=== PATIENT | male | born 1950 | race Caucasian/White ===

== ENCOUNTER 2016-07-20 20:55 | Observation (INO) | payer OTHER ==
[2016-07-20 22:43] LABS: Aty Lym Flag Marked; CH 33.6; CHCM 33.5; HCT 44.6 % (39.0-53.0); HGB 14.8 gm/dL (13.0-17.5); MCH 33.4 pg (25.0-35.0); MCHC 33.2 g/dL (31.0-37.0); MCV 100.8 fL (80.0-100.0); MPO Flag Slight; Mean Platelet Volume 8.2; RBC 4.42 m/uL (4.30-5.90); RDW 13.4 % (11.5-15.5); WBC 12.1 k/uL (3.8-10.6); WBC (Perox) 10.53
[2016-07-20 22:47] LABS: Add Differential Manual Differential
[2016-07-20 22:54] LABS: ALT 25 U/L (21-72); AST 25 U/L (17-59); Alkaline Phosphatase 64 U/L (38-126); Amylase 66 U/L (30-110); Anion Gap 8 mmol/L; Blood Urea Nitrogen 23 mg/dL (9-20); Calcium 9.5 mg/dL (8.4-10.2); Carbon Dioxide 24 mmol/L (22-30); Chloride 110 mmol/L (98-107); Glucose 93 mg/dL (74-99); Magnesium 2.3 mg/dL (1.6-2.3); Manual Review Performed; Non-African American GFR(MDRD) 56 (>60 ml/min/1.73 sqM); Nucleated Red Blood Cells 0 /100 WBC (0-0); Potassium 4.4 mmol/L (3.5-5.1); RBC Morphology Normal; Sodium 142 mmol/L (137-145); Total Bilirubin 0.5 mg/dL (0.2-1.3); Total Cells Counted 100; Total Protein 7.1 g/dL (6.3-8.2)
[2016-07-20 22:55] LABS: Partial Thromboplastin Time 23.7 sec (22.0-30.0); Prothrombin Time 10.1 sec (9.0-12.0)
[2016-07-20 23:05] LABS: Creatine Kinase 87 U/L (55-170)
[2016-07-20 23:17] LABS: Creatine Kinase MB 1.2 ng/mL (0.0-2.4); Troponin I <0.012 ng/mL (0.000-0.034)
--- NOTE | 2016-07-20 23:23 | XR ---
EXAM: XR Chest, 2 Views. CLINICAL HISTORY: Reason: Chest Pain TECHNIQUE: Frontal and lateral views of the chest. COMPARISON: No relevant prior studies available. FINDINGS: Lungs: Left base atelectasis. Cannot fully exclude infectious infiltrate. Pleural spaces: Unremarkable. No pneumothorax. Heart: Unremarkable. No cardiomegaly. Mediastinum: Unremarkable. Bones: Impression fracture deformities of lower thoracic levels, presumably chronic IMPRESSION: Left base atelectasis. Cannot fully exclude superimposed infection. Presumably chronic lower thoracic compression fracture deformities.
--- NOTE | 2016-07-21 00:53 | ED ---
Chest Pain HPI - General Chief Complaint: Chest Pain Stated Complaint: chest tightness, nausea Time Seen by Provider: 07/20/16 22:05 Source: patient Mode of arrival: wheelchair Limitations: no limitations - History of Present Illness Initial Comments: This patient is a 65-year-old man who presents to be evaluated for an episode of chest pain. The patient states that he had been working on cutting his grass with a push mower. He then went in to have his meal at around 6:30. Following that he had an episode of nausea and vomiting. He then noted that he was having some left chest tightness and he was feeling short of breath. The patient states that he sat and rested and the symptoms did seem to improve over the course of between 20 and 30 minutes. Patient discussed all this with his who wanted him to be seen here. The patient states that all of the initial symptoms have resolved and now he is only feeling tired. MD Complaint: chest pain Onset/Timin -: hour(s) Onset: after eating Pain Location: left chest Pain Radiation: none Severity: moderate Quality: tightness Consistency: now resolved Improves With: rest Worsens With: nothing Anginal Symptoms: nausea, vomiting, dyspnea Treatments Prior to Arrival: none - Related Data Home Medications Medication Instructions Recorded Confirmed Aspirin 325 mg PO DAILY 07/20/16 07/20/16 Enalapril Maleate [Vasotec] 5 mg PO DAILY 07/20/16 07/20/16 Meloxicam [Mobic] 7.5 mg PO DAILY PRN 07/20/16 07/20/16 Metoprolol Succinate (ER) [Toprol 50 mg PO DAILY 07/20/16 07/20/16 XL] Simvastatin [Zocor] 40 mg PO HS 07/20/16 07/20/16 Allergies Allergy/AdvReac Type Severity Reaction Status Date / Time No Known Allergies Allergy Verified 07/20/16 22:45 Review of Systems ROS Statement: Those systems with pertinent positive or pertinent negative responses have been documented in the HPI. ROS Other: All systems not noted in ROS Statement are negative. Constitutional: Denies: fever, chills, weakness Respiratory: Reports: as per HPI, dyspnea. Denies: cough, wheezes Cardiovascular: Reports: chest pain. Denies: palpitations, orthopnea, edema, syncope Gastrointestinal: Reports: as per HPI, nausea, vomiting. Denies: abdominal pain , melena, hematochezia Genitourinary: Denies: dysuria, hematuria Musculoskeletal: Denies: back pain Skin: Denies: rash Neurological: Denies: headache, weakness, numbness EKG Findings - EKG Results: EKG: interpreted by SAVITA SCOTT, sinus rhythm (Rate approximate 71 bpm), normal axis, normal QRS, normal ST/T - [place], Pacemaker, Normal: Normal tracing: normal tracing Past Medical History Past Medical History: Hyperlipidemia, Hypertension Additional Past Medical History / Comment(s): pt unsure of exact medical dx but states "heart valve problems" History of Any Multi-Drug Resistant Organisms: None Reported Past Surgical History: Tonsillectomy Past Psychological History: No Psychological Hx Reported Smoking Status: Current every day smoker Past Alcohol Use History: None Reported Past Drug Use History: None Reported General Exam Limitations: no limitations General appearance: alert, in no apparent distress Head exam: Present: atraumatic, normocephalic Eye exam: Present: normal appearance. Absent: scleral icterus, conjunctival injection Neck exam: Present: normal inspection Respiratory exam: Present: normal lung sounds bilaterally. Absent: respiratory distress, wheezes, rales, rhonchi, stridor Cardiovascular Exam: Present: regular rate, normal rhythm, normal heart sounds. Absent: systolic murmur, diastolic murmur, rubs, gallop GI/Abdominal exam: Present: soft. Absent: distended, tenderness, guarding, rebound, mass Extremities exam: Present: normal inspection, normal capillary refill. Absent: pedal edema, calf tenderness Back exam: Present: normal inspection. Absent: CVA tenderness (R), CVA tenderness (L) Neurological exam: Present: alert Skin exam: Present: warm, dry, intact, normal color. Absent: rash Course Vital Signs 07/20/16 07/20/16 07/20/16 21:01 22:09 23:01 Temperature 97.2 F L Pulse Rate 82 80 75 Respiratory 16 18 18 Rate Blood Pressure 117/59 111/67 118/64 O2 Sat by Pulse 96 97 97 Oximetry 07/21/16 07/21/16 07/21/16 00:00 01:00 02:00 Temperature Pulse Rate 70 68 71 Respiratory 18 18 18 Rate Blood Pressure 114/63 117/60 137/69 O2 Sat by Pulse 97 97 97 Oximetry Disposition Clinical Impression: Chest pain Disposition: ADMITTED IP TO THIS HOSP Condition: Fair Referrals: Malinda Gipson MD [Primary Care Provider] - 1-2 days
[2016-07-21] MEDS ORDERED: NITROGLYCERIN SL TABS 0.4 MG TAB SUBLINGUAL PRN (03:09)
[2016-07-21 05:04] LABS: Creatine Kinase 71 U/L (55-170)
[2016-07-21 05:16] LABS: Creatine Kinase MB 0.9 ng/mL (0.0-2.4); Troponin I <0.012 ng/mL (0.000-0.034)
[2016-07-21 09:38] LABS: Creatine Kinase 63 U/L (55-170)
[2016-07-21 09:52] LABS: Creatine Kinase MB 0.8 ng/mL (0.0-2.4); Troponin I <0.012 ng/mL (0.000-0.034)
[2016-07-21] MEDS: METOPROLOL SUCCINATE (ER) 50 MG TAB.ER.24H PO SCH (12:45)
[2016-07-21] MEDS: LISINOPRIL 10 MG TAB PO SCH (12:45)
[2016-07-21] MEDS: ASPIRIN 325 MG TAB PO SCH (12:45)
[2016-07-21] MEDS ORDERED: ALBUTEROL NEBULIZED 2.5 MG/3 ML INHALATION PRN (13:37)
[2016-07-21] MEDS: PANTOPRAZOLE 40 MG TABLET PO SCH (18:02)
[2016-07-21] MEDS ORDERED: SYMBICORT 80-4.5 MCG INHALER INHALATION SCH (20:00)
[2016-07-21] MEDS: ATORVASTATIN 20 MG TAB PO SCH (21:46)
[2016-07-22] MEDS: SODIUM CHLORIDE 0.9% 1,000 ML IV SCH ×3 (00:37→20:26)
[2016-07-22 05:33] LABS: Cholesterol 163 mg/dL (<200); HDL Cholesterol 52 mg/dL (40-60); Triglycerides 68 mg/dL (<150)
--- NOTE | 2016-07-22 08:29 | HP ---
DATE OF ADMISSION: 07/21/2016 The patient is a 65-year-old complaints of testing in the epigastric area started after eating a meal, lasted for about 20 minutes, pressure-like sensation. Patient also complained about some shortness of breath may be related to his COPD per se, questionable diaphoresis. Patient's chest pain is nonpleuritic in nature. Did also complain of some lightheadedness. Patient does have risk factors including hypertension, and hyperlipidemia, although no significant family history of premature coronary disease and patient does smoke. Otherwise, diagnosed with history of COPD . ( ). REVIEW OF SYSTEMS: CONSTITUTIONAL: No fever, no malaise, no fatigue. HEENT: No recent visual problems or hearing problems. Denied any sore throat. CARDIOVASCULAR: as described in HPI. Patient denied any palpitations. PULMONARY: as described in HPI. GASTROINTESTINAL: No diarrhea, no nausea, no vomiting, no abdominal pain. Normoactive bowel sounds. NEUROLOGICAL: No headaches, no weakness, no numbness. HEMATOLOGICAL: Denies any bleeding or petechiae. GENITOURINARY: Denies any burning micturition, frequency, or urgency. MUSCULOSKELETAL/RHEUMATOLOGICAL: Denies any joint pain, swelling, or any muscle pain. ENDOCRINE: Denies any polyuria or polydipsia. The rest of the 14 point review of systems is negative. Home medications include: 1. Aspirin. 2. Meloxicam. 3. Metoprolol. 4. Losartan. ALLERGIES: No known drug allergies. PAST MEDICAL HISTORY: Significant for hypertension, hyperlipidemia, patient does have a history of smoking, smokes about 1 pack per day. Denied any alcohol abuse. FAMILY HISTORY: Significant for lung cancer in family. No history of premature coronary artery disease. PHYSICAL EXAMINATION: VITAL SIGNS: Temperature 98.0, pulse of 73, respiratory rate 18, blood pressure is 116/61, saturating at 96% on room air. GENERAL: The patient is alert and oriented x3, not in any acute distress. Well developed, well nourished. HEENT: Pupils are round and equally reacting to light. EOMI. No scleral icterus. No conjunctival pallor. Normocephalic, atraumatic. No pharyngeal erythema. No thyromegaly. CARDIOVASCULAR: S1 and S2 present. No murmurs, rubs, or gallops. PULMONARY: Minimal expiratory wheezing was appreciated. The chest x-ray showed minimal bibasilar atelectasis. ABDOMEN: Soft, nontender, nondistended, normoactive bowel sounds. No palpable organomegaly. MUSCULOSKELETAL: No joint swelling or deformity. EXTREMITIES: No cyanosis, clubbing, or pedal edema. NEUROLOGICAL: Gross neurological examination did not reveal any focal deficits. SKIN: No rashes. LABORATORY DATA: CBC, CMP are abnormal for mildly elevated WBC count 12,100, BUN and creatinine are 23 and 1.3. I do not have his baseline creatinine. ASSESSMENT AND PLAN: 1. Chest pain. Rule out acute coronary syndrome. Will obtain two more sets of troponins. The patient was evaluated by cardiology. The patient's chest pain is mostly in the gastric area appears to be mostly gastritis and the patient has been started on Protonix to see if he has any improvement. 2. Shortness of breath, probably related to undiagnosed chronic obstructive pulmonary disease. I do not believe the patient ( ) at this point of time the patient will be started on ( ) nebulizations. 3. Nicotine abuse, counselling was provided. 4. Hypertension. 5. Hyperlipidemia. 6. Possible chronic kidney disease from Stage 2 to 3, possibly from hypertensive nephrosclerosis. The patient will be started on IV fluids and see if his kidney function improves, if it is related with secondary to prerenal azotemia. 7. Hyperlipidemia, ( ) will be continued.
[2016-07-22] MEDS ORDERED: ASPIRIN 325 MG TAB PO SCH (09:00)
--- NOTE | 2016-07-22 09:14 | P.CRDCN ---
History of Present Illness Consult date: 07/22/16 Reason for Consult (text): chest pain Chief complaint: nausea/vomiting, chest pressure and SOB History of present illness: This is a pleasant 65-year-old gentleman with a history of hypertension, hyperlipidemia, smoking and COPD. He denies a family history of heart disease. 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 Most recent echogardiogram form 2005 showed left atrial enlargement, thickened mitral valve without prolapse, LV enlargement with normal EF, and mild pulmonary hypertension. He also underwent a persantine cardiolyte for cardiac catheterization around that time, these results are not available with the patient believes is her normal. Yesterday he was in his usual state of health, was push mowing part of his lawn. He came in the house, ate dinner and developed sudden onset nausea and vomiting. He then sat on his couch and developed intermittent chest tightness and pressure with shortness of breath lasting about 20-30 minutes resolved on their own. The duration of the episode patient decided to come to the emergency department. EKG on admission shows normal sinus rhythm without acute ST-T wave changes. Chest X-ray showed left base atelectasis and could not fully exclude superimposed infection. Laboratory evaluation of troponins to be less than 0.0123 with a BUN/ creatinine of 23 and creatinine 1.3. Vital signs have been stable. On examination, patient is resting comfortably in bed. He denies any further complaints of nausea, vomiting, chest pressure or tightness or shortness of breath. Had no dizziness, lightheadedness, syncope, abdominal pain or edema. Past Medical History Past Medical History: Hyperlipidemia, Hypertension Additional Past Medical History / Comment(s): pt unsure of exact medical dx but states "heart valve problems," pts states he takes mobic for a frozen shoulder. pt states he had a heart cath done and had a leaky valve, pt believes heart cath was done about 2004. History of Any Multi-Drug Resistant Organisms: None Reported Past Surgical History: Tonsillectomy Past Psychological History: No Psychological Hx Reported Smoking Status: Current every day smoker Past Alcohol Use History: None Reported Past Drug Use History: None Reported - Past Family History Mother Family Medical History: Cancer Additional Family Medical History / Comment(s): lung cancer, reproductive organ cancer and spread to her breain. Father History Unknown: Yes Sister(s) Additional Family Medical History / Comment(s): 1 sister had non-hodgkin's lymphoma. 2 sister had pancreatic cancer Medications and Allergies Home Medications Medication Instructions Recorded Confirmed Type Aspirin 325 mg PO DAILY 07/20/16 07/20/16 History Enalapril Maleate [Vasotec] 5 mg PO DAILY 07/20/16 07/20/16 History Meloxicam [Mobic] 7.5 mg PO DAILY PRN 07/20/16 07/20/16 History Metoprolol Succinate (ER) [Toprol 50 mg PO DAILY 07/20/16 07/20/16 History XL] Simvastatin [Zocor] 40 mg PO HS 07/20/16 07/20/16 History Allergies Allergy/AdvReac Type Severity Reaction Status Date / Time No Known Allergies Allergy Verified 07/20/16 22:45 Physical Exam Vitals: Vital Signs Temp Pulse Pulse Resp BP BP Pulse Ox 07/22/16 07:42 98.1 F 58 L 16 103/54 96 07/22/16 04:00 97.6 F 51 L 16 100/56 95 07/22/16 03:48 18 07/21/16 23:53 18 07/21/16 23:48 54 L 18 114/65 96 07/21/16 20:00 97.8 F 66 18 112/66 97 07/21/16 16:00 97.8 F 60 16 98/59 96 07/21/16 12:07 97.8 F 57 L 16 116/57 96 07/21/16 12:00 97.9 F 76 18 125/58 97 07/21/16 11:47 57 L 18 116/57 97 07/21/16 10:35 62 18 116/61 98 Intake and Output 07/21/16 07/22/16 07/22/16 22:59 06:59 14:59 Intake Total 250 200 Balance 250 200 Intake: Oral 250 200 Other: Voiding Method Toilet Toilet # Voids 1 2 PHYSICAL EXAMINATION: HEENT: Head is atraumatic, normocephalic. Pupils equal, round. Neck is supple. There is no elevated jugular venous pressure. HEART EXAMINATION: Heart sounds regular, S1 and S2 normal. No murmur or gallop heard. CHEST EXAMINATION: Lungs are clear to auscultation and precussion. No chest wall tenderness is noted on palpation or with deep breathing. ABDOMEN: Soft, nontender. Bowel sounds are heard. No organomegaly noted. EXTREMITIES: 2+ peripheral pulses with no evidence of peripheral edema and no calf tenderness noted. NEUROLOGIC patient is awake, alert and oriented x3. . Results 07/20/16 22:19 07/20/16 22:19 Cardiac Enzymes 07/21/16 Range/Units 08:43 CK-MB (CK-2) 0.8 (0.0-2.4) ng/mL Troponin I <0.012 (0.000-0.034) ng/mL Lipids 07/21/16 Range/Units 08:43 Triglycerides 68 (<150) mg/dL Cholesterol 163 (<200) mg/dL HDL Cholesterol 52 (40-60) mg/dL Current Medications Generic Name Dose Route Start Last Admin Trade Name Freq PRN Reason Stop Dose Admin Albuterol Sulfate 2.5 mg 07/21/16 13:37 Ventolin Nebulized INHALATION RT-TID PRN Shortness Of Breath Or Wheezing Aspirin 325 mg 07/21/16 09:00 07/21/16 12:45 Aspirin PO 325 mg DAILY UMER Administration Atorvastatin Calcium 20 mg 07/21/16 21:00 07/21/16 21:46 Lipitor PO 20 mg HS UMER Administration Budesonide/Formoterol Fumarate 2 puff 07/22/16 08:00 Symbicort 160-4.5 Mcg Inhaler INHALATION RT-BID UMER Sodium Chloride 1,000 mls @ 100 mls/hr 07/21/16 23:45 07/22/16 00:37 Saline 0.9% IV 100 mls/hr .Q10H UMER Administration Lisinopril 10 mg 07/21/16 09:00 07/21/16 12:45 Zestril PO 10 mg DAILY UMER Administration Metoprolol Succinate 50 mg 07/21/16 09:00 07/21/16 12:45 Toprol Xl PO 50 mg DAILY UMER Administration Nitroglycerin 0.4 mg 07/21/16 03:09 Nitrostat SUBLINGUAL Q5M PRN Chest Pain Pantoprazole Sodium 40 mg 07/21/16 13:15 07/21/16 18:02 Protonix PO 40 mg [id number] UMER Administration Sodium Chloride 10 ml 07/21/16 09:00 07/21/16 21:46 Saline Flush IV 10 ml BID UMER Administration Intake and Output 07/21/16 07/22/16 07/22/16 22:59 06:59 14:59 Intake Total 250 200 Balance 250 200 Intake: Oral 250 200 Other: Voiding Method Toilet Toilet # Voids 1 2 07/20/16 22:19 07/20/16 22:19 EKG Interpretations (text) Normal sinus rhythm Assessment and Plan Plan: Assessment and Plan #1 hypertension, well-controlled #2 hyperlipidemia, LDL 97 and HDL 52, on simvastatin at home #3 nausea and vomiting #4 chest pressure and tightness with shortness of breath with negative cardiac enzymes From cardiology's perspective, we will obtain 2-D echo with Doppler to assess LV function. Increase the patient's activity. Further recommendations depending on patient's clinical status. FOREMAN OR SUPERVISOR AND OPERATOR note has been reviewed, I agree with a documented findings and plan of care. Patient was seen and examined.
[2016-07-22] MEDS: LISINOPRIL 10 MG TAB PO SCH (09:33)
[2016-07-22] MEDS: METOPROLOL SUCCINATE (ER) 50 MG TAB.ER.24H PO SCH (09:33)
[2016-07-22] MEDS: ASPIRIN 325 MG TAB PO SCH (09:34)
[2016-07-22] MEDS: PANTOPRAZOLE 40 MG TABLET PO SCH (09:34)
[2016-07-22] MEDS: SYMBICORT 160-4.5 MCG INHALER INHALATION SCH ×2 (09:58→21:07)
--- NOTE | 2016-07-22 10:44 | P.PN ---
Progress Note - Text 65-year-old male patient presenting with chest discomfort after mowing the lawn. Risk factors of hypertension dyslipidemia and smoking, normal cardiac enzymes normal ECG Suggest Lexiscan for light stress test on Sunday Aspirin and atorvastatin in the interim No beta blockers no Imdur Reassessment thereafter
--- NOTE | 2016-07-22 18:35 | ECHOF ---
Referral Reason:Chest Pain MEASUREMENTS -------- HEIGHT: 182.9 cm WEIGHT: 78.5 kg BP: 103/54 IVSd: 0.9 cm (0.6 - 1.1) LVIDd: 6.0 cm (3.9 - 5.3) LVPWd: 1.0 cm (0.6 - 1.1) IVSs: 1.2 cm LVIDs: 4.7 cm LVPWs: 1.6 cm LAESV Index (A-L): 39.68 ml/m Ao Diam: 3.6 cm (2.0 - 3.7) AV Cusp: 2.6 cm (1.5 - 2.6) LA Diam: 4.1 cm (2.7 - 3.8) MV EXCURSION: 19.089 mm (> 18.000) MV EF SLOPE: 70 mm/s (70 - 150) EPSS: 0.8 cm MV E [place]: 0.86 m/s MV DecT: 234 ms MV A [place]: 1.08 m/s MV E/A Ratio: 0.80 AR PHT: 671 ms RAP: 5.00 mmHg RVSP: 8.15 mmHg FINDINGS -------- Sinus rhythm. This was a technically good study. The left ventricle is mildly dilated. Left ventricular wall thickness is normal. There is mild global hypokinesis of LV . Overall left ventricular systolic function is mildly impaired with, an EF between 45 - 50 %. The right ventricle is normal in size and function. LA is moderately dilated 34-39 ml/m2 The right atrium is normal in size. Aortic valve is trileaflet and is mildly thickened. There is moderate aortic regurgitation. The mitral valve leaflets are mildly thickened. Mild mitral annular calcification present. Moderate mitral regurgitation is present. Mild tricuspid regurgitation present. The right ventricular systolic pressure, as measured by Doppler, is 8.15mmHg. Pulmonic valve appears structurally normal. The aortic root size is normal. The pericardium is normal. CONCLUSIONS -------- 1. Sinus rhythm. 2. The mitral valve leaflets are mildly thickened. 3. Mild mitral annular calcification present. 4. Moderate mitral regurgitation is present. 5. Mild tricuspid regurgitation present. 6. The right ventricular systolic pressure, as measured by Doppler, is 8.15mmHg. 7. Pulmonic valve appears structurally normal. 8. The aortic root size is normal. 9. The pericardium is normal. 10. This was a technically good study. 11. The left ventricle is mildly dilated. 12. Left ventricular wall thickness is normal. 13. The right ventricle is normal in size and function. 14. LA is moderately dilated 34-39 ml/m2 15. The right atrium is normal in size. 16. Aortic valve is trileaflet and is mildly thickened. 17. There is moderate aortic regurgitation. SECONDARY SPANISH TEACHER: Meredith Davila RDCS
[2016-07-22] MEDS: ATORVASTATIN 20 MG TAB PO SCH (20:35)
[2016-07-23] MEDS: SODIUM CHLORIDE 0.9% 1,000 ML IV SCH ×2 (06:54→17:20)
[2016-07-23] MEDS: ASPIRIN 81 MG CHEW PO SCH (08:22)
[2016-07-23] MEDS: PANTOPRAZOLE 40 MG TABLET PO SCH (08:22)
[2016-07-23] MEDS: LISINOPRIL 10 MG TAB PO SCH (08:22)
[2016-07-23] MEDS: SYMBICORT 160-4.5 MCG INHALER INHALATION SCH ×2 (09:10→19:24)
--- NOTE | 2016-07-23 09:14 | PN ---
INTERVAL HISTORY: Mr. Alba is a 65 -year-old male with a past medical history of hypertension, hyperlipidemia, smoking, admitted to the hospital with a chief complaint of chest pain. The patient states that he started to have the chest discomfort after having a meal last for about 20 minutes pressure-like sensation associated with some shortness of breath and questionable diaphoresis. The patient also had slight dizziness and lightheadedness. He is currently being monitored with serial troponins and EKGs. Troponins have been less than 0.012. Cardiology on board and planning for Lexiscan stress test tomorrow. The patient is comfortably lying in bed, appears to be no acute distress. He does not have any active ongoing complaints. REVIEW OF SYSTEMS: CONSTITUTIONAL: Denies having fevers, chills or rigors. RESPIRATORY: No cough. No difficulty in breathing. CARDIAC: No chest pain or palpitations. GASTROINTESTINAL: No nausea or vomiting. No diarrhea. : No dysuria or hematuria. The patient's medications have been reviewed. On examination, temperature 98, heart rate is 80, blood pressure 128/69, saturating 96% on room air. GENERAL EXAMINATION: Patient appears to be ( ) in no acute distress. HEAD: Atraumatic. Normocephalic. EYES: Pupils, round, and reactive to light. NECK: No JVD. No thyromegaly. CARDIAC: S1, S2 heard. RESPIRATORY: Bilateral breath sounds are positive, slightly diminished at the lower lung base. GI: Abdomen soft, nontender. No organomegaly. Bowel sounds are positive. EXTREMITIES: No cyanosis, no clubbing. COMMERCIAL FISHERMAN: Alert, awake, oriented x3. SKIN: No rash. The patient's labs: No new labs from this morning. ASSESSMENT: 1. Chest pain. The patient had serial troponins and EKGs within normal limits but due to his extensive history of hypertension and hyperlipidemia, cardiology, Dr. Koch suggested that he get a Lexiscan that is scheduled for Sunday. 2. Nicotine abuse. 3. Hypertension. 4. Hyperlipidemia. 5. Elevated creatinine, unclear whether it is acute kidney injury or chronic kidney disease so we will repeat labs for tomorrow morning. PLAN: The plan is to continue the patient on the current medication regimen. Is planning to get Lexiscan stress test on Sunday as per cardiology recommendations. Further recommendations to follow depending on the progress of the patient. MTDD
--- NOTE | 2016-07-23 09:19 | PN ---
Claude is doing well. He has not had any further chest discomfort. He has had 3 sets of cardiac enzymes, which are normal. LDL is 97, HDL 52, total cholesterol 163. Triglycerides 68, amylase and lipase are normal. His BUN is 23, his creatinine is 1.3. Hemoglobin is normal. His white count was 12.1. Yesterday he underwent a 2-D echo. Ejection fraction is in the normal range, although I thought the left ventricle was mildly dilated and the ejection fraction was at the lower limits of normal, but he was also bradycardic. His right ventricle may be mildly enlarged. He did have at least 2+ aortic regurgitation and 2+ mitral regurgitation. Upon admission, he had been complaining of chest discomfort after mowing the lawn. His risk factors include hypertension, dyslipidemia, and smoking. I also found him mildly bradycardic yesterday. He is on Toprol-XL 50 mg a day. SUGGEST: Proceed with Lexiscan Cardiolite stress test tomorrow and coronary angiography if this is abnormal. Beta blockers are on hold at this time. I will continue aspirin and statins. He was bradycardic on Toprol-XL 50 mg daily and I may consider carvedilol 3.125 mg twice daily and hopefully, his blood pressure can tolerate this. Will follow his valvular heart disease including 2+ aortic regurgitation and 2+ mitral regurgitation.
[2016-07-23] MEDS ORDERED: ALPRAZolam 0.25 MG TAB PO PRN (09:39)
[2016-07-23] MEDS ORDERED: SODIUM CHLORIDE 0.9% 1,000 ML in EMPTY BAG 1 BAG IV ONE (09:39)
[2016-07-23] MEDS ORDERED: ATORVASTATIN 80 MG TAB PO STA (09:39)
[2016-07-23] MEDS ORDERED: ALPRAZolam 0.5 MG TAB PO PRN (09:39)
[2016-07-23] MEDS ORDERED: NITROGLYCERIN SL TABS 0.4 MG TAB SUBLINGUAL PRN (09:39)
[2016-07-23] MEDS: METOPROLOL SUCCINATE (ER) 25 MG TAB.ER.24H PO SCH (13:45)
--- NOTE | 2016-07-23 15:49 | PN ---
Mr. Alba is a 65 -year-old male with past medical history of hypertension, hyperlipidemia, smoking admitted to the hospital with chief complaint of chest pain. Patient did have serial troponins and EKGs that were within normal limits. Patient did have an echocardiogram with an EF that is within normal limits done yesterday. He is being scheduled for a cardiac cath tomorrow morning by Dr. Koch. The patient is lying comfortably in the bed, appears to be no acute distress. He does not have any active complaints. REVIEW OF SYSTEMS: CONSTITUTIONAL: Denies having any fevers, chills, or rigors. RESPIRATORY: No cough. No difficulty in breathing. GI: No abdominal pain, nausea, vomiting, or diarrhea. : No dysuria or hematuria. Patient's medications have been reviewed. On examination, patient's vitals: Temperature 97.9, heart rate 71, respiratory rate 16, blood pressure 116/52, saturating at 96% on room air. PHYSICAL EXAMINATION: Patient appears to be in no acute distress. HEAD: Atraumatic, normocephalic. EYES: Pupils round and reactive to light. No pallor. No icterus. NECK: No JVD. No thyromegaly. CARDIOVASCULAR: S1, S2 heard. Examination of the oral cavity, very poor oral hygiene. Bilateral breath sounds are positive, slightly diminished at the lower lung bases. GI: Abdomen is soft. No organomegaly. Bowel sounds are positive. EXTREMITIES: No edema. No cyanosis. No clubbing. CRA OFFICER: Alert, awake, oriented times three. SKIN: No rash. PSYCHIATRIC: Appropriate mood and affect. No new labs from this morning. His troponins have been less than 0.12 x 3. ASSESSMENT AND PLAN: 1. Chest pain. The patient with serial troponins and EKGs within normal limits but he has extensive history of hypertension, hyperlipidemia and smoking so he is being scheduled for a cardiac cath tomorrow morning. 2. Nicotine abuse. 3. Hypertension. 4. Hyperlipidemia. 5. Elevated creatinine. We will check his a.m. labs. PLAN: The plan is to continue current medication regimen. He is scheduled for a cardiac cath tomorrow morning. Further recommendations to follow depending on the progress of the patient. JOSE
[2016-07-23] MEDS: ATORVASTATIN 20 MG TAB PO SCH (20:29)
[2016-07-24 04:12] VITALS: RESP 16
[2016-07-24] MEDS ORDERED: ASPIRIN 325 MG TAB PO STA ×2 (04:33→09:16)
[2016-07-24] MEDS: ASPIRIN 81 MG CHEW PO SCH (04:38)
[2016-07-24] MEDS: SODIUM CHLORIDE 0.9% 1,000 ML IV SCH ×2 (04:46→12:04)
[2016-07-24] MEDS: LISINOPRIL 10 MG TAB PO SCH (06:46)
[2016-07-24] MEDS: METOPROLOL SUCCINATE (ER) 25 MG TAB.ER.24H PO SCH (06:47)
[2016-07-24] MEDS: PANTOPRAZOLE 40 MG TABLET PO SCH (06:47)
[2016-07-24 07:53] LABS: Anion Gap 8 mmol/L; Blood Urea Nitrogen 17 mg/dL (9-20); Calcium 8.6 mg/dL (8.4-10.2); Carbon Dioxide 25 mmol/L (22-30); Chloride 109 mmol/L (98-107); Glucose 77 mg/dL (74-99); Non-African American GFR(MDRD) >60 (>60 ml/min/1.73 sqM); Potassium 4.2 mmol/L (3.5-5.1); Sodium 142 mmol/L (137-145)
[2016-07-24 07:57] LABS: Aty Lym Flag Marked; CH 32.7; CHCM 32.5; HDW 1.99; HGB 13.8 gm/dL (13.0-17.5); MCH 31.8 pg (25.0-35.0); MCHC 31.5 g/dL (31.0-37.0); MCV 101.1 fL (80.0-100.0); MPO Flag Slight; Macrocytosis Slight; Mean Platelet Volume 8.1; RBC 4.35 m/uL (4.30-5.90); RDW 13.3 % (11.5-15.5); WBC 7.6 k/uL (3.8-10.6); WBC (Perox) 7.98
[2016-07-24] MEDS: SYMBICORT 160-4.5 MCG INHALER INHALATION SCH (08:17)
[2016-07-24 08:49] LABS: Add Differential Manual Differential
[2016-07-24 08:51] LABS: Manual Review Performed; Nucleated Red Blood Cells 0 /100 WBC (0-0); Total Cells Counted 100
[2016-07-24] MEDS ORDERED: NITROGLYCERIN SL TABS 0.4 MG TAB SUBLINGUAL PRN (09:16)
[2016-07-24] MEDS ORDERED: SODIUM CHLORIDE 0.9% 1,000 ML in EMPTY BAG 1 BAG IV ONE (09:16)
[2016-07-24] MEDS ORDERED: ATORVASTATIN 80 MG TAB PO STA (09:16)
[2016-07-24] MEDS ORDERED: ALPRAZolam 0.5 MG TAB PO PRN (09:16)
[2016-07-24] MEDS ORDERED: ALPRAZolam 0.25 MG TAB PO PRN (09:16)
[2016-07-24 11:45] VITALS: TEMP 98.4
[2016-07-24] MEDS ORDERED: VERAPAMIL 2.5 MG/ML 2 ML AMP ONE ×2 (11:55→11:59)
[2016-07-24] MEDS ORDERED: LIDOCAINE 2% INJ 20 MG/ML (20 ML MDV) ONE (11:55)
[2016-07-24] MEDS ORDERED: MIDAZOLAM 2 MG/2 ML VIAL ONE (11:55)
[2016-07-24] MEDS ORDERED: diphenhydrAMINE 50 MG/ML 1 ML VIAL ONE (12:06)
[2016-07-24] MEDS ORDERED: diphenhydrAMINE 50 MG/ML 1 ML VIAL IVP ONE (12:30)
[2016-07-24] MEDS ORDERED: MIDAZOLAM 2 MG/2 ML VIAL IV ONE (12:31)
[2016-07-24] MEDS ORDERED: LIDOCAINE 2% INJ 20 MG/ML SQ ONE (12:33)
[2016-07-24] MEDS: VERAPAMIL SYRINGE (5 MG/10 ML) INTRAARTER ONE ×2 (12:34→12:44)
[2016-07-24] MEDS ORDERED: IOHEXOL 350 MG/ML 125ML BOTTLE INJ ONE (12:44)
[2016-07-24] MEDS ORDERED: RX INFO: IV CONTRAST WAS GIVEN 1 EACH MISC MISCELLANE PRN (12:51)
[2016-07-24] MEDS ORDERED: SODIUM CHLORIDE 0.9% 1,000 ML IV SCH (13:00)
[2016-07-24 15:53] VITALS: BP 95/57; PULSE 57
--- NOTE | 2016-07-25 06:04 | CC ---
DATE OF SERVICE: 07/24/2016 PERFORMING PHYSICIAN: Oscar Miner MD, pump and still operator. PROCEDURE PERFORMED: Selective right and left coronary angiogram. INDICATION: This is a pleasant 65-year-old gentleman who presented to the hospital with a chest discomfort concerning for angina and he was seen and evaluated by Dr. Koch who recommended proceeding with heart catheterization. APPROACH: Right radial artery. COMPLICATIONS: None. LEVEL OF SEDATION: Moderate with sedation length of 13 minutes. PROCEDURE DESCRIPTION: After obtaining an informed consent, the patient was brought to the cardiac computer laboratory technician. The right radial artery was cannulated using micropuncture technique. The micropuncture wire passed easily, then I placed 6 [place] sheath in the right radial artery. Subsequently, I did selective right and left coronary angiogram using JR4 and JL3.5 catheters after I gave the patient 2 mg of verapamil IA and 3000 units of heparin IV. The procedure was completed without any complication. SELECTIVE CORONARY ANGIOGRAM: 1. The right coronary artery is a large-caliber vessel and it is a dominant vessel and it is angiographically normal. It bifurcates into PDA and PLV branches distally. 2. The left main appeared to have mild disease in the ostium. It bifurcates into the left circumflex and left anterior descending artery. 3. The left circumflex is a large-caliber vessel and it is a nondominant vessel. The left circumflex is angiographically normal. 4. The left anterior descending artery; the proximal LAD is angiographically normal and gives rises into the first diagonal, which seems to be angiographically normally. The mid LAD appeared to have mild disease only and the LAD distally appeared to be angiographically normal. CONCLUSION: Mild nonobstructive coronary artery disease. Postprocedure management will be maximize medical treatment and follow up with the patient.
--- NOTE | 2016-07-25 11:02 | DS ---
DATE OF ADMISSION: 07/21/2016 DATE OF DISCHARGE: 07/24/2016 FINAL DIAGNOSES: 1. Chest pain, possible angina, status post cardiac catheterization showing no significant coronary artery disease, final report pending. 2. History of hypertension, essential. 3. Hyperlipidemia. 4. History of nicotine dependence. 5. History of elevated creatinine with acute renal failure, present on admission, prerenal factors. 6. Increased WBC, improved. DISCHARGE DISPOSITION: The patient will be discharged in a stable condition with guarded prognosis. Discharge cleared by Cardiology. HISTORY OF PRESENT ILLNESS: This 65-year-old gentleman with a past medical history of multiple medical problems as mentioned earlier being followed by Dr. Gipson in the outpatient setting admitted with chest pain, myocardial infarction ruled out. Cardiology performed a cardiac catheterization, final report is pending at this time. Apparently, there was no significant of cardiac disease, coronary artery disease at this time. On exam, vitals are stable. CARDIOVASCULAR: S1 and S2 muffled. ABDOMEN: Soft. NERVOUS SYSTEM: No focal deficits. DISCHARGE ADVICE: 1. Diet is cardiac. 2. Activity limited until followup. 3. Follow up with Dr. Gipson in 1 to 2 days. 4. Follow up with Cardiology as advised. Medications will be: 1. Aspirin 325 mg daily. 2. Vasotec 5 mg p.o. daily. 3. Mobic 7.5 p.o. daily. 4. Toprol XL 50 mg p.o. daily. 5. Protonix 40 mg p.o. daily. 6. Zocor 40 mg q.h.s.
== END 2016-07-24 18:34 | disposition home or self-care (01) ==
LOC: EC 20:55 → 3OBS 07-21 03:09 → 3SUR 07-21 19:00 → 3OBS 07-22 17:41
PROVIDERS: ADMIT Hospitalist; ATTEND Hospitalist
DX: I25.10 Atherosclerotic heart disease of native coronary artery without angina pectoris (principal); Z79.899 Other long term (current) drug therapy; Z79.82 Long term (current) use of aspirin; I10 Essential (primary) hypertension; E78.5 Hyperlipidemia, unspecified; F17.200 Nicotine dependence, unspecified, uncomplicated; J44.9 Chronic obstructive pulmonary disease, unspecified; Z80.1 Family history of malignant neoplasm of trachea, bronchus and lung; Z82.49 Family history of ischemic heart disease and other diseases of the circulatory system; M75.00 Adhesive capsulitis of unspecified shoulder; Z79.51 Long term (current) use of inhaled steroids; R00.1 Bradycardia, unspecified; I08.0 Rheumatic disorders of both mitral and aortic valves; N17.9 Acute kidney failure, unspecified
CPT/HCPCS: 93458; 99285 ×3; 96360; 96361; 93005 ×2; 36415; 94640 ×5; 93306; 93454; 80061; 80053; 80048; 82150; 82550 ×2; 82553 ×2; 83690; 83735; 84484 ×2; 85025 ×2; 85610; 85730; 71020; G0378 ×6; C1894; J2001; J2250; J1200; J1644; Q9967

== ENCOUNTER → 2016-11-17 | Outpatient (CLI) | payer OTHER ==
[2016-11-17 09:44] LABS: Cholesterol 156 mg/dL (<200); HDL Cholesterol 59 mg/dL (40-60)
== END | disposition home or self-care (01) ==
LOC: LABWHC1 08:51
PROVIDERS: ATTEND Nurse Practitioner Adult Health
DX: E78.2 Mixed hyperlipidemia (principal); I25.10 Atherosclerotic heart disease of native coronary artery without angina pectoris
CPT/HCPCS: 36415; 80061

== ENCOUNTER → 2017-08-20 | Outpatient (CLI) | payer OTHER ==
--- NOTE | 2017-08-20 14:06 | XR ---
EXAMINATION TYPE: XR cervical spine 5 views comp, XR thoracic spine 3 views XR lumbosacral spine min 5 views DATE OF EXAM: 08/20/2017 COMPARISON: Lumbar spine 04/08/2014 HISTORY: 66-year-old male with pain, injury 30 years ago. FINDINGS: Cervical spine: No predental space widening or prevertebral soft tissue swelling. Moderate anterior and plate spondyl osis mid to lower thoracic spine. There is grade 1 retrolisthesis at C3-C4. Multilevel facet and unco vertebral joint degenerative change results in variable neural foraminal narrowing on both sides, at least moderate in degree. There is some limitation in assessment due to the degree of obliquity. Norm al odontoid view. Normal alignment. Thoracic spine: Moderate degenerative disc disease especially at C7-T1. Vertebral body heights are preserved and alig nment is maintained. There is dextroconvex curvature of the thoracic spine and mild multilevel endpla te spondylosis. Lumbar spine: Stable anterior vertebral body fracture of T12 and anterior wedging of L1. Slight grade 1 retrolisthe sis of L1 relative to T12 and L2 vertebral bodies not significantly changed. Mild endplate spondylosi s and facet degenerative change mid to lower lumbar spine. IMPRESSION: 1. Cervical spine: Moderate multilevel spondylotic change. Degenerative grade 1 retrolisthesis at C3- C4. Preserved alignment. 2. Thoracic spine: Mild multilevel spondylosis. Dextroconvex curvature could be positional, due to mu scle spasm, or underlying scoliosis. No vertebral compression collapse or malalignment. 3. Lumbar spine: Stable chronic compression deformities of T12 and L1. Slight grade 1 retrolisthesis of L1 relative to T12 and L2 relatively similar.
== END | disposition home or self-care (01) ==
LOC: RADXRMAIN 11:52
PROVIDERS: ATTEND Internal Medicine
DX: M43.12 Spondylolisthesis, cervical region (principal); M43.15 Spondylolisthesis, thoracolumbar region; M47.812 Spondylosis without myelopathy or radiculopathy, cervical region; M47.813 Spondylosis without myelopathy or radiculopathy, cervicothoracic region; M43.9 Deforming dorsopathy, unspecified
CPT/HCPCS: 72050; 72070; 72110

== ENCOUNTER → 2018-07-25 | Outpatient (CLI) | payer MEDICARE, OTHER ==
[2018-07-25 18:07] LABS: Albumin 3.9 g/dL (3.80-4.90); Albumin/Globulin Ratio 1.7 (1.60-3.17); Anion Gap 4.7 mmol/L (4.00-12.00); Bilirubin, Conjugated 0.2 mg/dL (0.20-0.40); Bilirubin,Unconjugated 0.4 mg/dL; Carbon Dioxide 23.3 mmol/L (21.6-31.8); Globulin 2.3 g/dL (1.6-3.3); LDL Cholesterol,Calculated 82.4 mg/dL (0.0-131.0); Potassium 4.4 mmol/L (3.5-5.5); Total Bilirubin 0.6 mg/dL (0.3-1.2); Total Protein 6.2 g/dL (6.2-8.2); VLDL Calculation 14.6 mg/dL (5.00-40.00)
== END | disposition home or self-care (01) ==
LOC: LABWHC1 11:25
PROVIDERS: ATTEND Internal Medicine
DX: E78.5 Hyperlipidemia, unspecified (principal); I10 Essential (primary) hypertension; Z12.5 Encounter for screening for malignant neoplasm of prostate
CPT/HCPCS: 80051; 80061; 80076; 82565; 82947; 84520; 36415; G0103

== ENCOUNTER → 2019-02-17 | Outpatient (CLI) | payer MEDICARE, OTHER ==
[2019-02-17 17:31] LABS: African American GFR (CKD) 80.6 (60.0-200.0); Anion Gap 5.6 mmol/L (4.00-12.00); BUN/Creat Ratio 20.91 Ratio (12.00-20.00); Calcium 9.2 mg/dL (8.7-10.3); Carbon Dioxide 27.4 mmol/L (21.6-31.8); Chol/HDL Ratio 2.54; LDL Cholesterol,Calculated 76.8 mg/dL (0.0-131.0); Non-African American GFR(CKD) 69.6 (60.0-200.0); Potassium 5.2 mmol/L (3.5-5.5); VLDL Calculation 17.2 mg/dL (5.00-40.00)
[2019-02-17 17:39] LABS: T4, Free (Free Thyroxine) 1.1 ng/dL (0.80-1.80)
== END | disposition home or self-care (01) ==
LOC: LABWHC1 08:28
PROVIDERS: ATTEND Physician Assistant
DX: E78.5 Hyperlipidemia, unspecified (principal); I10 Essential (primary) hypertension; I42.0 Dilated cardiomyopathy
CPT/HCPCS: 36415; 80048; 80061; 84439; 84443; 84481

== ENCOUNTER 2019-03-22 12:45 | Inpatient (IN) | payer MEDICARE, OTHER ==
[2019-03-22] MEDS ORDERED: SODIUM CHLORIDE 0.9% 500 ML 500 ML IV STA (13:08)
--- NOTE | 2019-03-22 13:23 | ED ---
General Adult HPI - General Chief complaint: Syncope Stated complaint: syncope Time Seen by Provider: 03/22/19 13:03 Source: patient, RN notes reviewed, old records reviewed Mode of arrival: ambulatory Limitations: no limitations - History of Present Illness Initial comments: 68-year-old male presenting for evaluation of dyspnea and syncopal episode. Anne-Marie du was outside in the snow using his snowblower. He had difficulty starting snowblower and had to follow at some distance. He became dyspneic, he felt lightheaded and momentarily blacked out. He did not injure himself when he fell. There is no preceding chest pain. No palpitations. Patient has history of "weak heart" and does follow with cardiology. He is currently on Coreg and he took this medication this morning. No anticoagulation. Patient states his symptoms are completely resolved at this time. He does have history of COPD and is a current smoker. Denies fever. Denies cough. Denies abdominal pain. Denies preceding vomiting or diarrhea. Denies focal numbness or weakness. - Related Data Home Medications Medication Instructions Recorded Confirmed Aspirin 325 mg PO DAILY 07/20/16 07/20/16 Enalapril Maleate [Vasotec] 5 mg PO DAILY 07/20/16 07/20/16 Meloxicam [Mobic] 7.5 mg PO DAILY PRN 07/20/16 07/20/16 Metoprolol Succinate (ER) [Toprol 50 mg PO DAILY 07/20/16 07/20/16 XL] Simvastatin [Zocor] 40 mg PO HS 07/20/16 07/20/16 Previous Rx's Medication Instructions Recorded Pantoprazole [Protonix] 40 mg PO AC-[id number] #20 tab 07/24/16 Allergies Allergy/AdvReac Type Severity Reaction Status Date / Time No Known Allergies Allergy Verified 03/22/19 12:54 Review of Systems ROS Statement: Those systems with pertinent positive or pertinent negative responses have been documented in the HPI. ROS Other: All systems not noted in ROS Statement are negative. Past Medical History Past Medical History: Hyperlipidemia, Hypertension Additional Past Medical History / Comment(s): pt unsure of exact medical dx but states "heart valve problems History of Any Multi-Drug Resistant Organisms: None Reported Past Surgical History: Tonsillectomy Past Psychological History: No Psychological Hx Reported Smoking Status: Current every day smoker Past Alcohol Use History: None Reported Past Drug Use History: None Reported - Past Family History Mother Family Medical History: Cancer Additional Family Medical History / Comment(s): lung cancer, reproductive organ cancer and spread to her breain. Father History Unknown: Yes Sister(s) Additional Family Medical History / Comment(s): 1 sister had non-hodgkin's lymphoma. 2 sister had pancreatic cancer General Exam Limitations: no limitations General appearance: alert, in no apparent distress Head exam: Present: atraumatic, normocephalic Eye exam: Present: normal appearance, PERRL ENT exam: Present: normal exam Neck exam: Present: normal inspection. Absent: tenderness, meningismus Respiratory exam: Present: normal lung sounds bilaterally. Absent: respiratory distress, wheezes, rales Cardiovascular Exam: Present: regular rate, normal rhythm GI/Abdominal exam: Present: soft. Absent: distended, tenderness, guarding, rebound Extremities exam: Present: normal inspection, normal capillary refill. Absent: pedal edema, calf tenderness Neurological exam: Present: alert, oriented X3, CN II-XII intact. Absent: motor sensory deficit Psychiatric exam: Present: normal affect, normal mood Skin exam: Present: warm, dry, intact. Absent: cyanosis, diaphoretic Course Vital Signs 03/22/19 12:49 Pulse Rate 93 Respiratory 18 Rate Blood Pressure 93/58 O2 Sat by Pulse 98 Oximetry EKG Findings - EKG Comments: EKG Findings:: EKG: Normal sinus rhythm, rate of 81, OR interval 142, QRS duration 98, QTC 448, no ST segment elevation, there is a T waves in the precordial leads, similar compared to previous EKG. Medical Decision Making - Medical Decision Making 68-year-old male with an episode of syncope, this was exertional in nature. History is concerning. Workup was initiated, he has normal sinus rhythm no ST segment elevation on EKG. He has mild leukocytosis 13.8, uncertain exact etiology of leukocytosis at this time. He has a acute kidney injury with a rising creatinine at 1.36 mild lactic acidosis 2.7. He has mild hyperkalemia 5.3 this is treated with IV fluids. He has a negative troponin. He has a positive d-dimer and this is in the setting of acute renal failure, VQ scan has been ordered for evaluation of pulmonary embolism. Patient will be admitted to internal medicine with cardiology on consult. He will be kept on telemetry. Echo will be obtained. Case is discussed with Dr. Kaplan, will follow-up on VQ scan. - Lab Data Result diagrams: 03/22/19 13:13 03/22/19 13:13 Lab Results 03/22/19 03/22/19 03/22/19 Range/Units 13:13 13:13 13:13 WBC 13.8 H (3.8-10.6) k/uL RBC 4.80 (4.30-5.90) m/uL Hgb 15.8 (13.0-17.5) gm/dL Hct 48.6 (39.0-53.0) % MCV 101.3 H (80.0-100.0) fL MCH 32.9 (25.0-35.0) pg MCHC 32.5 (31.0-37.0) g/dL RDW 12.5 (11.5-15.5) % Plt Count 181 (150-450) k/uL Neutrophils % (Manual) 80 % Lymphocytes % (Manual) 16 % Monocytes % (Manual) 3 % Eosinophils % (Manual) 1 % Neutrophils # (Manual) 11.04 H (1.3-7.7) k/uL Lymphocytes # (Manual) 2.21 (1.0-4.8) k/uL Monocytes # (Manual) 0.41 (0-1.0) k/uL Eosinophils # (Manual) 0.14 (0-0.7) k/uL Nucleated RBCs 0 (0-0) /100 WBC Manual Slide Review Performed PT 10.3 (9.0-12.0) sec INR 1.0 (<1.2) APTT 21.5 L (22.0-30.0) sec D-Dimer 0.86 H (<0.60) mg/L FEU Sodium 137 (137-145) mmol/L Potassium 5.3 H (3.5-5.1) mmol/L Chloride 102 (98-107) mmol/L Carbon Dioxide 23 (22-30) mmol/L Anion Gap 12 mmol/L BUN 25 H (9-20) mg/dL Creatinine 1.36 H (0.66-1.25) mg/dL Est GFR (CKD-EPI)AfAm 62 (>60 ml/min/1.73 sqM) Est GFR (CKD-EPI)NonAf 54 (>60 ml/min/1.73 sqM) Glucose 161 H (74-99) mg/dL Plasma Lactic Acid Angelo (0.7-2.0) mmol/L Calcium 9.3 (8.4-10.2) mg/dL Magnesium 2.1 (1.6-2.3) mg/dL Total Bilirubin 1.1 (0.2-1.3) mg/dL AST 34 (17-59) U/L ALT 24 (4-49) U/L Alkaline Phosphatase 86 (38-126) U/L Troponin I (0.000-0.034) ng/mL Total Protein 7.9 (6.3-8.2) g/dL Albumin 4.4 (3.5-5.0) g/dL 03/22/19 03/22/19 Range/Units 13:13 13:13 WBC (3.8-10.6) k/uL RBC (4.30-5.90) m/uL Hgb (13.0-17.5) gm/dL Hct (39.0-53.0) % MCV (80.0-100.0) fL MCH (25.0-35.0) pg MCHC (31.0-37.0) g/dL RDW (11.5-15.5) % Plt Count (150-450) k/uL Neutrophils % (Manual) % Lymphocytes % (Manual) % Monocytes % (Manual) % Eosinophils % (Manual) % Neutrophils # (Manual) (1.3-7.7) k/uL Lymphocytes # (Manual) (1.0-4.8) k/uL Monocytes # (Manual) (0-1.0) k/uL Eosinophils # (Manual) (0-0.7) k/uL Nucleated RBCs (0-0) /100 WBC Manual Slide Review PT (9.0-12.0) sec INR (<1.2) APTT (22.0-30.0) sec D-Dimer (<0.60) mg/L FEU Sodium (137-145) mmol/L Potassium (3.5-5.1) mmol/L Chloride (98-107) mmol/L Carbon Dioxide (22-30) mmol/L Anion Gap mmol/L BUN (9-20) mg/dL Creatinine (0.66-1.25) mg/dL Est GFR (CKD-EPI)AfAm (>60 ml/min/1.73 sqM) Est GFR (CKD-EPI)NonAf (>60 ml/min/1.73 sqM) Glucose (74-99) mg/dL Plasma Lactic Acid Angelo 2.7 H* (0.7-2.0) mmol/L Calcium (8.4-10.2) mg/dL Magnesium (1.6-2.3) mg/dL Total Bilirubin (0.2-1.3) mg/dL AST (17-59) U/L ALT (4-49) U/L Alkaline Phosphatase (38-126) U/L Troponin I <0.012 (0.000-0.034) ng/mL Total Protein (6.3-8.2) g/dL Albumin (3.5-5.0) g/dL Disposition Clinical Impression: Syncope, Acute kidney injury Disposition: [facility] Condition: Stable Referrals: Malinda Gipson MD [Primary Care Provider] - 1-2 days Decision to Admit Reason: Admit from EC Decision Date: 03/22/19 Decision Time: 15:04
[2019-03-22 13:39] LABS: Albumin 4.4 g/dL (3.5-5.0); Calcium 9.3 mg/dL (8.4-10.2); Total Bilirubin 1.1 mg/dL (0.2-1.3); Total Protein 7.9 g/dL (6.3-8.2)
[2019-03-22 13:40] LABS: Magnesium 2.1 mg/dL (1.6-2.3); Potassium 5.3 mmol/L (3.5-5.1)
[2019-03-22 13:45] LABS: HCT 48.6 % (39.0-53.0); HGB 15.8 gm/dL (13.0-17.5); MCH 32.9 pg (25.0-35.0); MCHC 32.5 g/dL (31.0-37.0); MCV 101.3 fL (80.0-100.0); Mean Platelet Volume 8.5; Platelet Count 181 k/uL (150-450); RDW 12.5 % (11.5-15.5); WBC 13.8 k/uL (3.8-10.6)
[2019-03-22 13:46] LABS: Partial Thromboplastin Time 21.5 sec (22.0-30.0); Prothrombin Time 10.3 sec (9.0-12.0)
[2019-03-22 13:53] LABS: D-Dimer 0.86 mg/L FEU (<0.60)
--- NOTE | 2019-03-22 14:05 | XR ---
EXAMINATION TYPE: XR chest 2V DATE OF EXAM: 03/22/2019 HISTORY: syncope. REFERENCE: Previous study dated 07/20/2016. FINDINGS: The lungs are overinflated but clear. Pleural space are clear. The heart is not enlarged. IMPRESSION: COPD.
[2019-03-22 14:06] LABS: Eosinophils # (M) 0.14 k/uL (0-0.7); Lymphocytes # (M) 2.21 k/uL (1.0-4.8); Monocytes # (M) 0.41 k/uL (0-1.0); Neutrophils # (M) 11.04 k/uL (1.3-7.7); Neutrophils % (M) 80 %; Nucleated Red Blood Cells 0 /100 WBC (0-0); Total Cells Counted 100
[2019-03-22] MEDS ORDERED: SODIUM CHLORIDE 0.9% 500 ML 500 ML IV ONE (14:34)
[2019-03-22] MEDS ORDERED: NALOXONE 0.4 MG/ML 1 ML VIAL IV PRN (15:00)
[2019-03-22] MEDS ORDERED: ACETAMINOPHEN TAB 325 MG TAB PO PRN (15:00)
--- NOTE | 2019-03-22 16:06 | NM ---
EXAMINATION TYPE: NM pul vent and perfuse DATE OF EXAM: 03/22/2019 COMPARISON: Chest x-ray 03/22/2019 HISTORY: Dyspnea, syncope TECHNIQUE: Utilizing inhalation of 30.1 mCi Tc 99m DTPA aerosol and intravenous injection of 5.3 mCi of Tc 99m MAA, ventilation and perfusion images are acquired post injection in multiple projections. FINDINGS: Patchy radiotracer distribution is noted in the lungs. There is no evidence of mismatched defects. Ce ntral clumping of the radiopharmaceutical on ventilation imaging consistent with underlying COPD. Mat ched defect present left upper lobe laterally, right upper lobe at the apex, perfusion somewhat elvira r uptake than on ventilation IMPRESSION: Low probability pulmonary embolism
[2019-03-22] MEDS: SODIUM CHLORIDE 0.9% 1,000 ML IV SCH (16:56)
--- NOTE | 2019-03-22 20:52 | P.HPIM ---
History of Present Illness This is a pleasant 68 years old male with past medical history of hypertension and hyperlipidemia, every day smoker, COPD, cardiomyopathy. he follows up with Dr. Au and he supposed to have a stress test this coming Sunday in 3 days.he has history of non-ischemic cardiomayopathy , as per pt years ago he had unremarkable cardiac cath , recently on regular f/u with his echo was showing wall hypokinesia which made worried and refered him to stress test which he supposed to get it in 3 days. however today while he was moving the snow plower he had to stop 3-4 times for dyspnea which is unusual for him , thereafter as his friend was helping him with moving the snow plower she felt lightheadedness ,and dizziness that he had to sit down but he did not pass out completely and he did not hit his head or any part of his body,after some rest he got nauseated with no vomiting , got worried and urged him to come to ED. he denies chest pain or abd pain or change in urine or bowel habits, no fever he smokes 4 cig per day cutting down from about 1 PPD. no alcohol or illicit drug. Blood pressure 93/58, saturating 98% room air, lap showing leukocytosis of 13.8 K, d-dimer 0.8, potassium 5.3, creatinine 1.3, lactic acid 2.7. Liver enzymes not elevated. Chest x-ray showed COPD. EKG showing NSR at [address]-T changes, QTC 448. The emergency room patient received 1 L of normal saline and started on 75 mL/h, and he is going for VQ scan Review of Systems CONSTITUTIONAL: No fever, no malaise, no fatigue. HEENT: No recent visual problems or hearing problems. Denied any sore throat. CARDIOVASCULAR: No orthopnea, PND, no palpitations, no syncope. PULMONARY: No shortness of breath, no cough, no hemoptysis. GASTROINTESTINAL: No diarrhea, no nausea, no vomiting, no abdominal pain. Normoactive bowel sounds. NEUROLOGICAL: No headaches, no weakness, no numbness. HEMATOLOGICAL: Denies any bleeding or petechiae. GENITOURINARY: Denies any burning micturition, frequency, or urgency. MUSCULOSKELETAL/RHEUMATOLOGICAL: Denies any joint pain, swelling, or any muscle pain. ENDOCRINE: Denies any polyuria or polydipsia. Past Medical History Past Medical History: Hyperlipidemia, Hypertension Additional Past Medical History / Comment(s): pt unsure of exact medical dx but states "heart valve problems History of Any Multi-Drug Resistant Organisms: None Reported Past Surgical History: Tonsillectomy Past Psychological History: No Psychological Hx Reported Smoking Status: Current every day smoker Past Alcohol Use History: None Reported Past Drug Use History: None Reported - Past Family History Mother Family Medical History: Cancer Additional Family Medical History / Comment(s): lung cancer, reproductive organ cancer and spread to her breain. Father History Unknown: Yes Sister(s) Additional Family Medical History / Comment(s): 1 sister had non-hodgkin's lymphoma. 2 sister had pancreatic cancer Medications and Allergies Home Medications Medication Instructions Recorded Confirmed Type Aspirin EC [Ecotrin Low Dose] 81 mg PO DAILY 03/22/19 03/22/19 History Atorvastatin [Lipitor] 40 mg PO HS 03/22/19 03/22/19 History Carvedilol [Coreg] 6.25 mg PO BID 03/22/19 03/22/19 History Enalapril Maleate [Vasotec] 10 mg PO DAILY 03/22/19 03/22/19 History Meloxicam [Mobic] 15 mg PO DAILY 03/22/19 03/22/19 History Allergies Allergy/AdvReac Type Severity Reaction Status Date / Time No Known Allergies Allergy Verified 03/22/19 15:46 Physical Exam Vitals: Vital Signs Pulse Resp BP Pulse Ox 03/22/19 12:49 93 18 93/58 98 Intake and Output 03/21/19 03/22/19 03/22/19 22:59 06:59 14:59 Other: Weight 73.028 kg GENERAL: The patient is alert and oriented x3, not in any acute distress. Well developed, well nourished. HEENT: Pupils are round and equally reacting to light. EOMI. No scleral icterus. No conjunctival pallor. Normocephalic, atraumatic. No pharyngeal erythema. No thyromegaly. CARDIOVASCULAR: S1 and S2 present. No murmurs, rubs, or gallops. PULMONARY: Chest is clear to auscultation, no wheezing or crackles. ABDOMEN: Soft, nontender, nondistended, normoactive bowel sounds. No palpable organomegaly. MUSCULOSKELETAL: No joint swelling or deformity. EXTREMITIES: No cyanosis, clubbing, or pedal edema. NEUROLOGICAL: Gross neurological examination did not reveal any focal deficits. SKIN: No rashes. No petechiae Results CBC & Chem 7: 03/22/19 13:13 03/22/19 13:13 Labs: Abnormal Lab Results - Last 24 Hours (Table) 03/22/19 03/22/19 03/22/19 Range/Units 13:13 13:13 13:13 WBC 13.8 H (3.8-10.6) k/uL MCV 101.3 H (80.0-100.0) fL Neutrophils # (Manual) 11.04 H (1.3-7.7) k/uL APTT 21.5 L (22.0-30.0) sec D-Dimer 0.86 H (<0.60) mg/L FEU Potassium 5.3 H (3.5-5.1) mmol/L BUN 25 H (9-20) mg/dL Creatinine 1.36 H (0.66-1.25) mg/dL Glucose 161 H (74-99) mg/dL Plasma Lactic Acid Angelo (0.7-2.0) mmol/L 03/22/19 Range/Units 13:13 WBC (3.8-10.6) k/uL MCV (80.0-100.0) fL Neutrophils # (Manual) (1.3-7.7) k/uL APTT (22.0-30.0) sec D-Dimer (<0.60) mg/L FEU Potassium (3.5-5.1) mmol/L BUN (9-20) mg/dL Creatinine (0.66-1.25) mg/dL Glucose (74-99) mg/dL Plasma Lactic Acid A[place] 2.7 H* (0.7-2.0) mmol/L Assessment and Plan Assessment: exertional dyspnea with lightheadedness and dizziness suspicious for cardiac cause given his significant cardiomyopathy, r/u ischemic changes. non-ischemic Cardiomyopathy acute kidney injury elevated D-Dimer, s/p V/Q scan: low probability for PE Hypertension Hyperlipidemia Nicotine dependence COPD, not in acute exacerbation Elevated d-dimer Elevated lactic acid Borderline blood pressure, stable and inverted T waves Plan: This is a pleasant 68 years old male who presents with dyspnea, pre-syncope. Continue with IV hydration, continue with a breathing treatment, telemetry and cardiology consult Labs and medication were reviewed.. Continue same treatment. Continue with symptomatic treatment. Resume home medication. Monitor lytes and vitals. DVT and GI prophylaxis. Further recommendations of the clinical course of the patient DVT prophylaxis: Subcutaneous heparin GI Prophylaxis: Pepcid PT/OT: Pending Prognosis is guarded
[2019-03-22] MEDS: FAMOTIDINE 20 MG/2 ML VIAL IV SCH (21:04)
[2019-03-22] MEDS: HEPARIN SODIUM,PORCINE 5,000 UNIT/ML 1 ML VIAL SQ SCH (21:04)
[2019-03-22] MEDS: ATORVASTATIN 40 MG TAB PO SCH (21:04)
[2019-03-23] MEDS: CARVEDILOL 6.25 MG TAB PO SCH ×2 (06:23→16:48)
[2019-03-23] MEDS: SODIUM CHLORIDE 0.9% 1,000 ML IV SCH ×2 (06:23→20:09)
[2019-03-23 07:54] LABS: HCT 40.4 % (39.0-53.0); HGB 13.2 gm/dL (13.0-17.5); MCH 33.2 pg (25.0-35.0); MCHC 32.8 g/dL (31.0-37.0); MCV 101.5 fL (80.0-100.0); Mean Platelet Volume 8.2; Platelet Count 135 k/uL (150-450); RBC 3.98 m/uL (4.30-5.90); RDW 12.5 % (11.5-15.5); WBC 7.4 k/uL (3.8-10.6)
[2019-03-23 08:05] LABS: Calcium 8.3 mg/dL (8.4-10.2); Magnesium 2.1 mg/dL (1.6-2.3); Potassium 4.2 mmol/L (3.5-5.1)
[2019-03-23] MEDS: FAMOTIDINE 20 MG/2 ML VIAL IV SCH (08:05)
[2019-03-23] MEDS: HEPARIN SODIUM,PORCINE 5,000 UNIT/ML 1 ML VIAL SQ SCH ×2 (08:05→20:09)
[2019-03-23] MEDS: ASPIRIN 81 MG PO SCH (08:05)
[2019-03-23 09:01] LABS: Eosinophils # (M) 0.15 k/uL (0-0.7); Lymphocytes # (M) 2.07 k/uL (1.0-4.8); Monocytes # (M) 1.04 k/uL (0-1.0); Neutrophils # (M) 4.14 k/uL (1.3-7.7); Neutrophils % (M) 56 %; Nucleated Red Blood Cells 0 /100 WBC (0-0); Total Cells Counted 100
--- NOTE | 2019-03-23 11:40 | P.PN ---
Subjective This is a pleasant 68 years old male with past medical history of hypertension and hyperlipidemia, every day smoker, COPD, cardiomyopathy. he follows up with Dr. Au and he supposed to have a stress test this coming Sunday in 3 days.he has history of non-ischemic cardiomayopathy , as per pt years ago he had unremarkable cardiac cath , recently on regular f/u with his echo was showing wall hypokinesia which made worried and refered him to stress test which he supposed to get it in 3 days. however today while he was moving the snow plower he had to stop 3-4 times for dyspnea which is unusual for him , thereafter as his friend was helping him with moving the snow plower she felt lightheadedness ,and dizziness that he had to sit down but he did not pass out completely and he did not hit his head or any part of his body,after some rest he got nauseated with no vomiting , got worried and urged him to come to ED. he denies chest pain or abd pain or change in urine or bowel habits, no fever he smokes 4 cig per day cutting down from about 1 PPD. no alcohol or illicit drug. Blood pressure 93/58, saturating 98% room air, lap showing leukocytosis of 13.8 K, d-dimer 0.8, potassium 5.3, creatinine 1.3, lactic acid 2.7. Liver enzymes not elevated. Chest x-ray showed COPD. EKG showing NSR at 81 with no s ignificant ST-T changes, QTC 448. The emergency room patient received 1 L of normal saline and started on 75 mL/h, and he is going for VQ scan 03/23/2019 Patient is with no chest pain or dyspnea today. Hemodynamically stable. WBC is came back to normal 7.4, sodium 136, creatinine back to normal at 1.0. Lactic acid is back to normal to 0.7, creatinine 2 is negative with less than 0.012. VQ scan came back low probability for pulmonary embolism. Patient remains on IV fluids at 75 mL/h we will lower to 50 mL per hour. Continue with aspirin and Lipitor and Coreg. We are consulted. Review of systems CONSTITUTIONAL: No fever, no malaise, no fatigue. HEENT: No recent visual problems or hearing problems. Denied any sore throat. CARDIOVASCULAR: No orthopnea, PND, no palpitations, no syncope. PULMONARY: No shortness of breath, no cough, no hemoptysis. GASTROINTESTINAL: No diarrhea, no nausea, no vomiting, no abdominal pain. Normoactive bowel sounds. NEUROLOGICAL: No headaches, no weakness, no numbness. HEMATOLOGICAL: Denies any bleeding or petechiae. GENITOURINARY: Denies any burning micturition, frequency, or urgency. MUSCULOSKELETAL/RHEUMATOLOGICAL: Denies any joint pain, swelling, or any muscle pain. ENDOCRINE: Denies any polyuria or polydipsia. Active Medications Generic Name Dose Route Start Last Admin Trade Name Freq PRN Reason Stop Dose Admin Acetaminophen 650 mg 03/22/19 15:00 Tylenol Tab PO Q6HR PRN Mild Pain or Fever > 100.5 Aspirin 81 mg 03/23/19 09:00 03/23/19 08:05 Aspirin PO 81 mg DAILY UMER Administration Atorvastatin Calcium 40 mg 03/22/19 21:00 03/22/19 21:04 Lipitor PO 40 mg HS UMER Administration Carvedilol 6.25 mg 03/23/19 07:30 03/23/19 06:23 Coreg PO 6.25 mg AC-BID UMER Administration Famotidine 20 mg 03/22/19 21:00 03/23/19 08:05 Pepcid IV 20 mg Q12HR UMER Administration Heparin Sodium (Porcine) 5,000 unit 03/22/19 21:00 03/23/19 08:05 Heparin SQ 5,000 unit Q12HR UMER Administration Sodium Chloride 1,000 mls @ 75 mls/hr 03/22/19 14:45 03/23/19 06:23 Saline 0.9% IV 75 mls/hr .[id number] UMER Administration Naloxone HCl 0.2 mg 03/22/19 15:00 Narcan IV Q2M PRN Opioid Reversal Objective - Vital Signs Vital signs: Vital Signs Temp 98.1 F 03/23/19 04:30 Pulse 65 03/23/19 08:00 Resp 16 03/23/19 11:27 BP 124/65 03/23/19 08:00 Pulse Ox 95 03/23/19 08:00 Intake & Output 03/22/19 03/23/19 03/23/19 18:59 06:59 18:59 Intake Total 480 240 Output Total 180 120 Balance 300 -120 240 Weight 73.028 kg 70.1 kg Intake: Oral 480 240 Output: Urine 180 120 Other: Voiding Method Toilet Toilet # Voids 1 1 - Exam GENERAL: The patient is alert and oriented x3, not in any acute distress. Well developed, well nourished. HEENT: Pupils are round and equally reacting to light. EOMI. No scleral icterus. No conjunctival pallor. Normocephalic, atraumatic. No pharyngeal erythema. No thyromegaly. CARDIOVASCULAR: S1 and S2 present. No murmurs, rubs, or gallops. PULMONARY: Chest is clear to auscultation, no wheezing or crackles. ABDOMEN: Soft, nontender, nondistended, normoactive bowel sounds. No palpable organomegaly. MUSCULOSKELETAL: No joint swelling or deformity. EXTREMITIES: No cyanosis, clubbing, or pedal edema. NEUROLOGICAL: Gross neurological examination did not reveal any focal deficits. SKIN: No rashes. No petechiae - Labs CBC & Chem 7: 03/23/19 07:10 03/23/19 07:10 Labs: Abnormal Lab Results - Last 24 Hours (Table) 03/22/19 03/22/19 03/22/19 Range/Units 13:13 13:13 13:13 WBC 13.8 H (3.8-10.6) k/uL RBC (4.30-5.90) m/uL MCV 101.3 H (80.0-100.0) fL Plt Count (150-450) k/uL Neutrophils # (Manual) 11.04 H (1.3-7.7) k/uL Monocytes # (Manual) (0-1.0) k/uL APTT 21.5 L (22.0-30.0) sec D-Dimer 0.86 H (<0.60) mg/L FEU Sodium (137-145) mmol/L Potassium 5.3 H (3.5-5.1) mmol/L BUN 25 H (9-20) mg/dL Creatinine 1.36 H (0.66-1.25) mg/dL Glucose 161 H (74-99) mg/dL Plasma Lactic Acid Angelo (0.7-2.0) mmol/L Calcium (8.4-10.2) mg/dL 03/22/19 03/23/1920 Range/Units 13:13 07:10 07:10 WBC (3.8-10.6) k/uL RBC 3.98 L (4.30-5.90) m/uL MCV 101.5 H (80.0-100.0) fL Plt Count 135 L (150-450) k/uL Neutrophils # (Manual) (1.3-7.7) k/uL Monocytes # (Manual) 1.04 H (0-1.0) k/uL APTT (22.0-30.0) sec D-Dimer (<0.60) mg/L FEU Sodium 136 L (137-145) mmol/L Potassium (3.5-5.1) mmol/L BUN 23 H (9-20) mg/dL Creatinine (0.66-1.25) mg/dL Glucose (74-99) mg/dL Plasma Lactic Acid Angelo 2.7 H* (0.7-2.0) mmol/L Calcium 8.3 L (8.4-10.2) mg/dL Assessment and Plan Assessment: exertional dyspnea with lightheadedness and dizziness suspicious for cardiac cause given his significant cardiomyopathy, r/u ischemic changes. non-ischemic Cardiomyopathy acute kidney injury elevated D-Dimer, s/p V/Q scan: low probability for PE Hypertension Hyperlipidemia Nicotine dependence COPD, not in acute exacerbation Elevated d-dimer Elevated lactic acid Borderline blood pressure, stable and inverted T waves Plan: This is a pleasant 68 years old male who presents with dyspnea, pre-syncope. Continue with IV hydration, continue with a breathing treatment, telemetry and cardiology consult Labs and medication were reviewed.. Continue same treatment. Continue with symptomatic treatment. Resume home medication. Monitor lytes and vitals. DVT and GI prophylaxis. Further recommendations of the clinical course of the patient DVT prophylaxis: Subcutaneous heparin GI Prophylaxis: Pepcid PT/OT: Pending Prognosis is guarded
[2019-03-23 12:10] LABS: Glucose,Whole Blood 122 mg/dL (75-99)
--- NOTE | 2019-03-23 12:35 | P.CRDCN ---
History of Present Illness Consult date: 03/23/19 Chief complaint: Shortness of breath History of present illness: This is a pleasant 68-year-old gentleman who sees Dr. Koch in the office on r egular basis with a past medical history significant for hypertension, dyslipidemia, and history of smoking, presented to the emergency room complaining of shortness of breath and presyncope. He was seen recently by Dr. Koch who recommended obtaining a stress test for shortness of breath. The p atient stated that he was having shortness of breath with exertion for the last week or so but yesterday he was trying to pull his snowplow or 2 with it in front of his home and suddenly he felt dizzy and lightheaded and about to lose his consciousness but he did not have syncope. He did not have any symptoms of chest pain or chest discomfort, and no symptoms of heart racing or fluttering. The EKG showed sinus rhythm without any significant ST or T-wave abnormalities. The enzymes came in to be unremarkable. D-dimer came in to be abnormal but VQ scan showed no evidence of PE. The patient continues to be asymptomatic after he was admitted to the hospital. Unfortunately he continues to smoke but he stated that he is working on smoking cessation. In 2017 he was admitted to the hospital with a chest discomfort and at that point he underwent an echocardiogram which revealed mildly impaired LV function was EF around 45% and subsequently he underwent a heart catheterization and that revealed normal coronaries. Past Medical History Past Medical History: Hyperlipidemia, Hypertension Additional Past Medical History / Comment(s): pt unsure of exact medical dx but states "heart valve problems History of Any Multi-Drug Resistant Organisms: None Reported Past Surgical History: Tonsillectomy Additional Past Surgical History / Comment(s): lt eye surgery Past Psychological History: No Psychological Hx Reported Smoking Status: Current every day smoker Past Alcohol Use History: None Reported Past Drug Use History: None Reported - Past Family History Mother Family Medical History: Cancer Additional Family Medical History / Comment(s): lung cancer, reproductive organ cancer and spread to her breain. Father History Unknown: Yes Sister(s) Additional Family Medical History / Comment(s): 1 sister had non-hodgkin's lymphoma. 2 sister had pancreatic cancer Medications and Allergies Home Medications Medication Instructions Recorded Confirmed Type Aspirin EC [Ecotrin Low Dose] 81 mg PO DAILY 03/22/19 03/22/19 History Atorvastatin [Lipitor] 40 mg PO HS 03/22/19 03/22/19 History Carvedilol [Coreg] 6.25 mg PO BID 03/22/19 03/22/19 History Enalapril Maleate [Vasotec] 10 mg PO DAILY 03/22/19 03/22/19 History Meloxicam [Mobic] 15 mg PO DAILY 03/22/19 03/22/19 History Allergies Allergy/AdvReac Type Severity Reaction Status Date / Time No Known Allergies Allergy Verified 03/22/19 15:46 Physical Exam Vitals: Vital Signs Temp Pulse Pulse Pulse Pulse Resp BP 03/23/19 12:00 63 16 03/23/19 11:27 16 03/23/19 08:00 65 16 03/23/19 06:23 65 03/23/19 04:30 98.1 F 59 L 16 03/22/19 23:05 98.1 F 56 L 18 03/22/19 20:20 97.5 F L 70 16 03/22/19 16:54 64 64 16 03/22/19 16:00 58 L 16 102/71 03/22/19 12:49 93 18 93/58 BP BP Pulse Ox 03/23/19 12:00 141/70 95 03/23/19 11:27 03/23/19 08:00 124/65 95 03/23/19 06:23 111/56 03/23/19 04:30 102/55 96 03/22/19 23:05 100/53 97 03/22/19 20:20 118/73 98 03/22/19 16:54 119/71 123/70 100 03/22/19 16:00 98 03/22/19 12:49 98 Intake and Output 03/22/19 03/23/19 03/23/19 22:59 06:59 14:59 Intake Total 480 240 Output Total 180 120 Balance 300 -120 240 Intake: Oral 480 240 Output: Urine 180 120 Other: Voiding Method Toilet Toilet Toilet # Voids 1 1 Weight 73.028 kg 70.1 kg - Constitutional General appearance: no acute distress - Respiratory Respiratory: bilateral: CTA - Cardiovascular Rhythm: regular Heart sounds: normal: S1, S2 Results 03/23/19 07:10 03/23/19 07:10 Cardiac Enzymes 03/22/19 03/22/19 03/23/19 Range/Units 13:13 13:13 07:10 AST 34 (17-59) U/L Troponin I <0.012 <0.012 (0.000-0.034) ng/mL Coagulation 03/22/19 Range/Units 13:13 PT 10.3 (9.0-12.0) sec APTT 21.5 L (22.0-30.0) sec CBC 03/22/19 03/23/19 Range/Units 13:13 07:10 WBC 13.8 H 7.4 (3.8-10.6) k/uL RBC 4.80 3.98 L (4.30-5.90) m/uL Hgb 15.8 13.2 (13.0-17.5) gm/dL Hct 48.6 40.4 (39.0-53.0) % Plt Count 181 135 L (150-450) k/uL Comprehensive Metabolic Panel 03/22/19 03/23/19 Range/Units 13:13 07:10 Sodium 137 136 L (137-145) mmol/L Potassium 5.3 H 4.2 (3.5-5.1) mmol/L Chloride 102 107 (98-107) mmol/L Carbon Dioxide 23 26 (22-30) mmol/L BUN 25 H 23 H (9-20) mg/dL Creatinine 1.36 H 1.05 (0.66-1.25) mg/dL Glucose 161 H 81 (74-99) mg/dL Calcium 9.3 8.3 L (8.4-10.2) mg/dL AST 34 (17-59) U/L ALT 24 (4-49) U/L Alkaline Phosphatase 86 (38-126) U/L Total Protein 7.9 (6.3-8.2) g/dL Albumin 4.4 (3.5-5.0) g/dL Current Medications Generic Name Dose Route Start Last Admin Trade Name Freq PRN Reason Stop Dose Admin Acetaminophen 650 mg 03/22/19 15:00 Tylenol Tab PO Q6HR PRN Mild Pain or Fever > 100.5 Aspirin 81 mg 03/23/19 09:00 03/23/19 08:05 Aspirin PO 81 mg DAILY UMER Administration Atorvastatin Calcium 40 mg 03/22/19 21:00 03/22/19 21:04 Lipitor PO 40 mg HS UMER Administration Carvedilol 6.25 mg 03/23/19 07:30 03/23/19 06:23 Coreg PO 6.25 mg AC-BID UMER Administration Famotidine 20 mg 03/22/19 21:00 03/23/19 08:05 Pepcid IV 20 mg Q12HR UMER Administration Heparin Sodium (Porcine) 5,000 unit 03/22/19 21:00 03/23/19 08:05 Heparin SQ 5,000 unit Q12HR UMER Administration Sodium Chloride 1,000 mls @ 50 mls/hr 03/22/19 14:45 03/23/19 06:23 Saline 0.9% IV 75 mls/hr .Q20H UMER Administration Dobutamine HCl/Dextrose 500 mg 250 mls @ 21.03 mls/hr 03/23/19 12:31 / IV Solution IV 03/24/19 00:24 .[id number] ONE Protocol 10 MCG/KG/MIN Naloxone HCl 0.2 mg 03/22/19 15:00 Narcan IV Q2M PRN Opioid Reversal Intake and Output 03/22/19 03/23/19 03/23/19 22:59 06:59 14:59 Intake Total 480 240 Output Total 180 120 Balance 300 -120 240 Intake: Oral 480 240 Output: Urine 180 120 Other: Voiding Method Toilet Toilet Toilet # Voids 1 1 Weight 73.028 kg 70.1 kg 03/23/19 07:10 03/23/19 07:10 Assessment and Plan Assessment: Assessment #1 presyncope #2 shortness of breath with exertion #3 hypertension #4 dyslipidemia #5 smoking Plan #1 acute coronary event was ruled out #2 PE was ruled out #3 an echocardiogram was scheduled to evaluate the ejection fraction #4 I am going to schedule the patient to undergo dobutamine stress echocardiogram to rule out severe CAD Thank you for allowing us participate in his care.
[2019-03-23] MEDS: ATORVASTATIN 40 MG TAB PO SCH (20:09)
[2019-03-23] MEDS: FAMOTIDINE 20 MG TAB PO SCH (20:09)
[2019-03-24 05:49] LABS: HCT 40.3 % (39.0-53.0); HGB 13.2 gm/dL (13.0-17.5); MCHC 32.8 g/dL (31.0-37.0); MCV 100.6 fL (80.0-100.0); Mean Platelet Volume 8.6; Platelet Count 144 k/uL (150-450); RBC 4.01 m/uL (4.30-5.90); RDW 12.5 % (11.5-15.5); WBC 8.3 k/uL (3.8-10.6)
[2019-03-24 05:57] LABS: Calcium 8.6 mg/dL (8.4-10.2); Potassium 4.8 mmol/L (3.5-5.1)
[2019-03-24] MEDS ORDERED: DOBUTamine DRIP for NUC MED 500 MG in DEXTROSE/WATER 1 250ML.BAG IV ONE (06:00)
[2019-03-24 06:27] LABS: Eosinophils # (M) 0.91 k/uL (0-0.7); Lymphocytes # (M) 1.41 k/uL (1.0-4.8); Monocytes # (M) 0.75 k/uL (0-1.0); Neutrophils # (M) 5.23 k/uL (1.3-7.7); Neutrophils % (M) 63 %; Nucleated Red Blood Cells 0 /100 WBC (0-0); Total Cells Counted 100
--- NOTE | 2019-03-24 11:37 | ECHOF ---
Referral Reason:Syncope MEASUREMENTS -------- HEIGHT: 182.9 cm WEIGHT: 69.9 kg BP: RVIDd: 3.5 cm (< 3.3) IVSd: 1.1 cm (0.6 - 1.1) LVIDd: 5.1 cm (3.9 - 5.3) LVPWd: 0.9 cm (0.6 - 1.1) IVSs: 1.6 cm LVIDs: 4.1 cm LVPWs: 1.3 cm LA Diam: 4.4 cm (2.7 - 3.8) LAESV Index (A-L): 42.91 ml/m Ao Diam: 3.7 cm (2.0 - 3.7) AV Cusp: 2.3 cm (1.5 - 2.6) MV EXCURSION: 20.824 mm (> 18.000) MV EF SLOPE: 37 mm/s (70 - 150) EPSS: 2.3 cm MV E Catrachito: 0.80 m/s MV DecT: 277 ms MV A Catr[place]ito: 0.92 m/s MV E/A Ratio: 0.88 AR PHT: 707 ms RAP: 5.00 mmHg RVSP: 22.12 mmHg FINDINGS -------- Sinus rhythm. This was a technically good study. The left ventricular size is normal. Overall left ventricular systolic function is mild-moderately impaired with, an EF between 40 - 45 %. The right ventricle is normal in size. The left atrium is markedly dilated. LA is severely dilated >40 ml/m2 The right atrial size is normal. There is mild aortic valve sclerosis. There is moderate aortic regurgitation. The mitral valve leaflets are mildly thickened. Mild mitral annular calcification present. Mild m itral regurgitation is present. Mild tricuspid regurgitation present. Right ventricular systolic pressure is normal at < 35 mmHg. There is no evidence of pulmonary hypertension. The right ventricular systolic pressure, as measur ed by Doppler, is 22.12mmHg. TV thickening. There is no pulmonic regurgitation present. The aortic root size is normal. There is no pericardial effusion. CONCLUSIONS -------- 1. Sinus rhythm. 2. This was a technically good study. 3. The left ventricular size is normal. 4. Overall left ventricular systolic function is mild-moderately impaired with, an EF between 40 - 45 %. 5. The right ventricle is normal in size. 6. The left atrium is markedly dilated. 7. LA is severely dilated >40 ml/m2 8. The right atrial size is normal. 9. There is mild aortic valve sclerosis. 10. There is moderate aortic regurgitation. 11. The mitral valve leaflets are mildly thickened. 12. Mild mitral annular calcification present. 13. Mild mitral regurgitation is present. 14. Mild tricuspid regurgitation present. 15. Right ventricular systolic pressure is normal at < 35 mmHg. 16. There is no evidence of pulmonary hypertension. 17. The right ventricular systolic pressure, as measured by Doppler, is 22.12mmHg. 18. TV thickening. 19. There is no pulmonic regurgitation present. 20. The aortic root size is normal. 21. There is no pericardial effusion. [employer]: Batool Gonzalez RDCS
--- NOTE | 2019-03-24 12:04 | P.EN ---
Patient was in stress test when i came to see him
[2019-03-24] MEDS ORDERED: ATROPINE SULFATE 0.1 MG/ML 10ML SYRINGE ONE (12:15)
--- NOTE | 2019-03-24 12:53 | P.PN ---
Subjective Progress Note Date: 03/24/19 This is a pleasant 68-year-old gentleman who sees Dr. Koch in the office on regular basis with a past medical history significant for hypertension, dyslipidemia, and history of smoking, presented to the emergency room complaining of shortness of breath and presyncope. He was seen recently by Dr. Koch who recommended obtaining a stress test for shortness of breath. The patient stated that he was having shortness of breath with exertion for the last week or so but yesterday he was trying to pull his snowplow or 2 with it in front of his home and suddenly he felt dizzy and lightheaded and about to lose his consciousness but he did not have syncope. He did not have any symptoms of chest pain or chest discomfort, and no symptoms of heart racing or fluttering. The EKG showed sinus rhythm without any significant ST or T-wave abnormalities. The enzymes came in to be unremarkable. D-dimer came in to be abnormal but VQ scan showed no evidence of PE. The patient continues to be asymptomatic after he was admitted to the hospital. Unfortunately he continues to smoke but he stated that he is working on smoking cessation. In 2017 he was admitted to the hospital with a chest discomfort and at that point he underwent an echocardiogram which revealed mildly impaired LV function was EF around 45% and subsequently he underwent a heart catheterization and that revealed normal coronaries. Patient was seen by Dr. Patel and recommended today to undergo a dobutamine echo. They did obtain orthostatic blood pressure on the patient, 162/69 standing 110/55 lying down. White blood cell count 8.3, hemoglobin 13.2, platelet count 144. Sodium 139, potassium 4.8, BUN 19, creatinine 1.1. Objective - Vital Signs Vital signs: Vital Signs Temp 97.6 F 03/24/19 04:00 Pulse 58 L 03/24/19 07:51 Resp 16 03/24/19 08:00 BP 121/66 03/24/19 07:51 Pulse Ox 98 03/24/19 07:51 Intake & Output 03/23/19 03/24/19 03/24/19 18:59 06:59 18:59 Intake Total 1640 Output Total 240 Balance 1640 -240 Weight 69.9 kg Intake: Intake, IV Titration 500 Amount Sodium Chloride 0.9% 1, 500 000 ml @ 50 mls/hr IV . Q20H UMER Rx#:[id number] Oral 1140 Output: Urine 240 Other: Voiding Method Toilet Toilet Toilet # Voids 4 1 3 - Exam PHYSICAL EXAMINATION: GENERAL: 68 year old gentleman in no acute distress at the time of my examination HEENT: Head is atraumatic, normocephalic. Pupils equal, round. Sclera anicteric. Conjunctiva are clear. Mucous membranes of the mouth are moist. Neck is supple. There is no elevated jugular venous pressure. No carotid bruit is heard. HEART EXAMINATION: Heart S1, S2 normal. No murmur or gallop heard. CHEST EXAMINATION: Lungs are clear to auscultation and precussion. No chest wall tenderness is noted on palpation or with deep breathing. ABDOMEN: Soft, nontender. Bowel sounds are heard. No organomegaly noted. EXTREMITIES: 2+ peripheral pulses with no evidence of peripheral edema and no calf tenderness noted. NEUROLOGIC patient is awake, alert and oriented 3 . - Labs CBC & Chem 7: 03/24/19 05:01 03/24/19 05:01 Labs: Abnormal Lab Results - Last 24 Hours (Table) 03/24/19 03/24/19 Range/Units 05:01 05:01 RBC 4.01 L (4.30-5.90) m/uL MCV 100.6 H (80.0-100.0) fL Plt Count 144 L (150-450) k/uL Eosinophils # (Manual) 0.91 H (0-0.7) k/uL Chloride 108 H (98-107) mmol/L Microbiology - Last 24 Hours (Table) 03/22/19 13:13 Blood Culture - Preliminary Blood No Growth after 24 hours Assessment and Plan Plan: Assessment #1 presyncope, symptoms of dizziness and lightheadedness, VQ scan was negative for pulmonary embolism #2 shortness of breath with exertion, underwent a cardiac catheterization in 2017 which revealed normal coronary arteries. Echo performed at that time showed a mildly impaired LV function with ejection fraction around 45% #3 hypertension #4 dyslipidemia #5 smoking Plan Patient is scheduled today to undergo an echocardiogram with Doppler study as well as a dobutamine echocardiographic study. Further recommendations will be based on those findings and the patient's clinical course. We will also obtain Dr. Koch's chart from the office. DNP note has been reviewed, I agree with a documented findings and plan of care. Patient was seen and examined.
--- NOTE | 2019-03-24 13:36 | ECHOS ---
STRESS ECHOCARDIOGRAM DATE OF SERVICE: 03/24/2019 INDICATIONS: Short of breath. MEDICATIONS: Meloxicam, atorvastatin, enalapril, aspirin. BASELINE HEART RATE: 56 BASELINE BLOOD PRESSURE: 119/71 MAXIMUM HEART RATE: 132 MAXIMUM BLOOD PRESSURE: 157/51 85% MPHR: 131 100% MPHR: 154 METS: MAXIMUM STAGE REACHED: TOTAL EXERCISE TIME: CLINICAL INFORMATION: Dobutamine stress echocardiogram report. This patient was given dobutamine infusion as well as 0.5 mg atropine. Peak heart rate of 132 was achieved. Maximum blood pressure of 157/51 mmHg was noted. Resting EKG shows normal sinus rhythm with normal WA interval and QRS duration and normal ST-T waves. Occasional PVCs were noted. During dobutamine infusion, J-point depression with upsloping ST segments were noted. Occasional ventricular couplets were noted. The baseline echocardiographic images reveals normal left ventricular chamber size with evidence of global hypokinesia with estimated ejection fraction in the range of 40% to 45%. With the dobutamine infusion, there was an increase in the wall thickness and contractility noted. No segmental wall motion abnormality was noted. FINAL IMPRESSION: 1. This resting echocardiographic study shows evidence of global hypokinesia with estimated ejection fraction of 40% to 45%. At the peak dose of dobutamine infusion, there was a [id number] increase in the contractility noted and no new segmental wall motion abnormality was noted to suggest ischemia. 2. Intermittent PVCs and occasional ventricular couplets were noted. YEN / NIURKAN: [id number] /
--- NOTE | 2019-03-24 15:06 | US ---
EXAMINATION TYPE: US venous doppler duplex LE DATE OF EXAM: 03/24/2019 2:52 PM COMPARISON: NONE CLINICAL HISTORY: r/o dvt. redness on right ankle, no h/o dvt SIDE PERFORMED: Bilateral TECHNIQUE: The lower extremity deep venous system is examined utilizing real time linear array sonog estephania with graded compression, doppler sonography and color-flow sonography. VESSELS IMAGED: External Iliac Vein (EIV) Common Femoral Vein Deep Femoral Vein Greater Saphenous Vein * Femoral Vein Popliteal Vein Small Saphenous Vein * Proximal Calf Veins (* superficial vessels) Right Leg: Appears negative for DVT Left Leg: Appears negative for DVT Grayscale, color doppler, spectral doppler imaging performed of the deep veins of the bilateral lower extremities. There is normal flow, compressibility, vascular waveforms. IMPRESSION: No ultrasound evidence for acute DVT in either lower extremity.
[2019-03-24] MEDS ORDERED: SODIUM CHLORIDE 0.9% 1,000 ML IV SCH (15:45)
[2019-03-24] MEDS: CARVEDILOL 6.25 MG TAB PO SCH ×2 (16:18→16:19)
[2019-03-24] MEDS: HEPARIN SODIUM,PORCINE 5,000 UNIT/ML 1 ML VIAL SQ SCH ×2 (16:19→20:51)
[2019-03-24] MEDS: FAMOTIDINE 20 MG TAB PO SCH ×2 (16:19→20:50)
[2019-03-24] MEDS: ASPIRIN 81 MG PO SCH (16:19)
--- NOTE | 2019-03-24 18:56 | P.PN ---
Subjective This is a pleasant 68 years old male with past medical history of hypertension and hyperlipidemia, every day smoker, COPD, cardiomyopathy. he follows up with Dr. Au and he supposed to have a stress test this coming Sunday in 3 days.he has history of non-ischemic cardiomayopathy , as per pt years ago he had unremarkable cardiac cath , recently on regular f/u with his echo was showing wall hypokinesia which made worried and refered him to stress test which he supposed to get it in 3 days. however today while he was moving the snow plower he had to stop 3-4 times for dyspnea which is unusual for him , thereafter as his friend was helping him with moving the snow plower she felt lightheadedness ,and dizziness that he had to sit down but he did not pass out completely and he did not hit his head or any part of his body,after some rest he got nauseated with no vomiting , got worried and urged him to come to ED. he denies chest pain or abd pain or change in urine or bowel habits, no fever he smokes 4 cig per day cutting down from about 1 PPD. no alcohol or illicit drug. Blood pressure 93/58, saturating 98% room air, lap showing leukocytosis of 13.8 K, d-dimer 0.8, potassium 5.3, creatinine 1.3, lactic acid 2.7. Liver enzymes not elevated. Chest x-ray showed COPD. EKG showing NSR at 81 with no s ignificant ST-T changes, QTC 448. The emergency room patient received 1 L of normal saline and started on 75 mL/h, and he is going for VQ scan 03/23/2019 Patient is with no chest pain or dyspnea today. Hemodynamically stable. WBC is came back to normal 7.4, sodium 136, creatinine back to normal at 1.0. Lactic acid is back to normal to 0.7, creatinine 2 is negative with less than 0.012. VQ scan came back low probability for pulmonary embolism. Patient remains on IV fluids at 75 mL/h we will lower to 50 mL per hour. Continue with aspirin and Lipitor and Coreg. We are consulted. 03/24/19 pt is status stress test today , dubetamin stress test : global hypokinesia, with ejection fraction of 40-45%, wiht no new wall motion abnormality to suggest ischemia , with intermittent PVCs, when i saw the pt after stress test he was lying in bed comfortable in distress, he denies current chest pain or dyspnea, no other complaint, he thinks he is at his usual state. however doppler of lower ext was negative for DVT in both legs. cardiology follow up and assessment after the stress test is pending Review of systems CONSTITUTIONAL: No fever, no malaise, no fatigue. HEENT: No recent visual problems or hearing problems. Denied any sore throat. CARDIOVASCULAR: No orthopnea, PND, no palpitations, no syncope. PULMONARY: No shortness of breath, no cough, no hemoptysis. GASTROINTESTINAL: No diarrhea, no nausea, no vomiting, no abdominal pain. Normoactive bowel sounds. NEUROLOGICAL: No headaches, no weakness, no numbness. HEMATOLOGICAL: Denies any bleeding or petechiae. GENITOURINARY: Denies any burning micturition, frequency, or urgency. MUSCULOSKELETAL/RHEUMATOLOGICAL: Denies any joint pain, swelling, or any muscle pain. ENDOCRINE: Denies any polyuria or polydipsia. Objective - Vital Signs Vital signs: Vital Signs Temp 97.6 F 03/24/19 04:00 Pulse 58 L 03/24/19 07:51 Resp 16 03/24/19 15:59 BP 121/66 03/24/19 07:51 Pulse Ox 98 03/24/19 07:51 Intake & Output 03/23/19 03/24/19 03/24/19 18:59 06:59 18:59 Intake Total 1640 620 Output Total 240 Balance 1640 -240 620 Weight 69.9 kg 69.9 kg Intake: Intake, IV Titration 500 Amount Sodium Chloride 0.9% 1, 500 000 ml @ 50 mls/hr IV . Q20H [facility] Rx#:[id number] Oral 1140 620 Output: Urine 240 Other: Voiding Method Toilet Toilet Toilet # Voids 4 1 3 - Exam GENERAL: The patient is alert and oriented x3, not in any acute distress. Well developed, well nourished. HEENT: Pupils are round and equally reacting to light. EOMI. No scleral icterus. No conjunctival pallor. Normocephalic, atraumatic. No pharyngeal erythema. No thyromegaly. CARDIOVASCULAR: S1 and S2 present. No murmurs, rubs, or gallops. PULMONARY: Chest is clear to auscultation, no wheezing or crackles. ABDOMEN: Soft, nontender, nondistended, normoactive bowel sounds. No palpable organomegaly. MUSCULOSKELETAL: No joint swelling or deformity. EXTREMITIES: No cyanosis, clubbing, or pedal edema. NEUROLOGICAL: Gross neurological examination did not reveal any focal deficits. SKIN: No rashes. No petechiae - Labs CBC & Chem 7: 03/24/19 05:01 03/24/19 05:01 Labs: Abnormal Lab Results - Last 24 Hours (Table) 03/24/19 03/24/19 Range/Units 05:01 05:01 RBC 4.01 L (4.30-5.90) m/uL MCV 100.6 H (80.0-100.0) fL Plt Count 144 L (150-450) k/uL Eosinophils # (Manual) 0.91 H (0-0.7) k/uL Chloride 108 H (98-107) mmol/L Microbiology - Last 24 Hours (Table) 03/22/19 13:13 Blood Culture - Preliminary Blood No Growth after 48 hours Assessment and Plan Assessment: exertional dyspnea with lightheadedness and dizziness suspicious for cardiac cause given his significant cardiomyopathy, r/u ischemic changes. non-ischemic Cardiomyopathy acute kidney injury elevated D-Dimer, s/p V/Q scan: low probability for PE Hypertension Hyperlipidemia Nicotine dependence COPD, not in acute exacerbation Elevated d-dimer Elevated lactic acid Borderline blood pressure, stable and inverted T waves Plan: This is a pleasant 68 years old male who presents with dyspnea, pre-syncope. Continue with IV hydration, continue with a breathing treatment, telemetry and cardiology consult Labs and medication were reviewed.. Continue same treatment. Continue with symptomatic treatment. Resume home medication. Monitor lytes and vitals. DVT and GI prophylaxis. Further recommendations of the clinical course of the p atient DVT prophylaxis: Subcutaneous heparin GI Prophylaxis: Pepcid PT/OT: Pending Prognosis is guarded
[2019-03-24] MEDS: SODIUM CHLORIDE 0.9% 1,000 ML IV SCH (20:46)
[2019-03-24] MEDS: ATORVASTATIN 40 MG TAB PO SCH (20:51)
[2019-03-25 04:53] VITALS: PULSE 66
[2019-03-25] MEDS: CARVEDILOL 6.25 MG TAB PO SCH ×2 (06:29→17:17)
[2019-03-25] MEDS: HEPARIN SODIUM,PORCINE 5,000 UNIT/ML 1 ML VIAL SQ SCH (08:45)
[2019-03-25] MEDS: ASPIRIN 81 MG PO SCH (08:45)
[2019-03-25] MEDS: FAMOTIDINE 20 MG TAB PO SCH (08:45)
[2019-03-25] MEDS ORDERED: IV FLUID CONTINUATION 500 ML IV ONE (10:45)
[2019-03-25 11:26] VITALS: RESP 16
[2019-03-25 12:00] LABS: Appearance,Urine Clear (Clear); Bilirubin,Urine Negative (Negative); Blood,Urine Negative (Negative); Color,Urine Yellow; Glucose,Urine (UA) Negative (Negative); Ketones,Urine Negative (Negative); Leukocyte Esterase,Urine Negative (Negative); Nitrite,Urine Negative (Negative); PH, Urine 6.5 (5.0-8.0); Protein,Urine Negative (Negative); Urobilinogen,Urine <2.0 mg/dL (<2.0)
--- NOTE | 2019-03-25 14:40 | P.PN ---
Subjective Progress Note Date: 03/25/19 This is a pleasant 68-year-old gentleman who sees Dr. Koch in the office on regular basis with a past medical history significant for hypertension, dyslipidemia, and history of smoking, presented to the emergency room complaining of shortness of breath and presyncope. He was seen recently by Dr. Koch who recommended obtaining a stress test for shortness of breath. The patient stated that he was having shortness of breath with exertion for the last week or so but yesterday he was trying to pull his snowplow or 2 with it in front of his home and suddenly he felt dizzy and lightheaded and about to lose his consciousness but he did not have syncope. He did not have any symptoms of chest pain or chest discomfort, and no symptoms of heart racing or fluttering. The EKG showed sinus rhythm without any significant ST or T-wave abnormalities. The enzymes came in to be unremarkable. D-dimer came in to be abnormal but VQ scan showed no evidence of PE. The patient continues to be asymptomatic after he was admitted to the hospital. Unfortunately he continues to smoke but he stated that he is working on smoking cessation. In 2017 he was admitted to the hospital with a chest discomfort and at that point he underwent an echocardiogram which revealed mildly impaired LV function was EF around 45% and subsequently he underwent a heart catheterization and that revealed normal coronaries. Patient was seen by Dr. Patel and recommended today to undergo a dobutamine echo. They did obtain orthostatic blood pressure on the patient, 162/69 standing 110/55 lying down. White blood cell count 8.3, hemoglobin 13.2, platelet count 144. Sodium 139, potassium 4.8, BUN 19, creatinine 1.1. 03/25/2019 Patient seen and examined this morning, he feels well, denies any dizziness or lightheadedness. Venous duplex study was performed which was negative for DVT. Echocardiogram with Doppler study revealed an ejection fraction of 40-45% which is similar to the patient's prior echo. He also underwent a tilt table test today which was reported to be normal. Dynamic is stable, anticipating a discharged home today. Objective - Vital Signs Vital signs: Vital Signs Temp 98.1 F 03/25/19 08:00 Pulse 66 03/25/19 04:00 Resp 16 03/25/19 08:00 BP 117/60 03/25/19 08:00 Pulse Ox 96 03/25/19 08:00 Intake & Output 03/24/19 03/25/19 03/25/19 18:59 06:59 18:59 Intake Total 620 60 240 Balance 620 60 240 Weight 69.9 kg 69 kg Intake: Intake, IV Titration 60 Amount Sodium Chloride 0.9% 1, 60 000 ml @ 20 mls/hr IV . Q24H [facility] Rx#:[id number] Oral 620 240 Other: Voiding Method Toilet Toilet Toilet # Voids 3 - Exam PHYSICAL EXAMINATION: GENERAL: 68 year old gentleman in no acute distress at the time of my examination HEENT: Head is atraumatic, normocephalic. Pupils equal, round. Sclera an icteric. Conjunctiva are clear. Mucous membranes of the mouth are moist. Neck is supple. There is no elevated jugular venous pressure. No carotid bruit is heard. HEART EXAMINATION: Heart S1, S2 normal. No murmur or gallop heard. CHEST EXAMINATION: Lungs are clear to auscultation and precussion. No chest wall tenderness is noted on palpation or with deep breathing. ABDOMEN: Soft, nontender. Bowel sounds are heard. No organomegaly noted. EXTREMITIES: 2+ peripheral pulses with no evidence of peripheral edema and no calf tenderness noted. NEUROLOGIC patient is awake, alert and oriented 3 . - Labs CBC & Chem 7: 03/24/19 05:01 03/24/19 05:01 Labs: Microbiology - Last 24 Hours (Table) 03/22/19 13:13 Blood Culture - Preliminary Blood No Growth after 48 hours Assessment and Plan Plan: Assessment #1 presyncope, symptoms of dizziness and lightheadedness, VQ scan was negative for pulmonary embolism #2 shortness of breath with exertion, underwent a cardiac catheterization in 2017 which revealed normal coronary arteries. Echo performed at that time margie wed a mildly impaired LV function with ejection fraction around 45% #3 hypertension #4 dyslipidemia #5 smoking Plan Dobutamine echocardiographic study was negative for any reversible ischemia. Echo showed an ejection fraction of 40-45%. Tilt table test was negative. From cardiology's perspective, patient may be able to be discharged home today to follow-up with Dr. Koch in the office post discharge. DNP note has been reviewed, I agree with a documented findings and plan of care. Patient was seen and examined.
[2019-03-25 16:57] VITALS: BP 123/63; TEMP 97.9
--- NOTE | 2019-03-25 17:43 | P.PN ---
Subjective Diagnosis: Presyncope Baseline 12-lead EKG shows sinus mechanism, normal NE, narrow QRS, normal QT interval, normal ST segments, no delta Waves or Epsilon Waves Baseline heart rate was 55 bpm, Baseline blood pressure 110/65 mmHg. Patient was tilted operated a 70 angle as per protocol. Blood pressure and heart rate remained stable throughout the procedure. The patient remained asymptomatic throughout the procedure. At the end of the procedure the patient was laid supine. Impression Normal twelve-lead EKG No evidence for neurocardiogenic syncope or dysautonomia Objective - Vital Signs Vital signs: Vital Signs Temp 97.9 F 03/25/19 16:00 Pulse 66 03/25/19 04:00 Resp 16 03/25/19 16:00 BP 123/63 03/25/19 16:00 Pulse Ox 97 03/25/19 16:00 Intake & Output 03/24/19 03/25/19 03/25/19 18:59 06:59 18:59 Intake Total 620 60 240 Output Total 600 Balance 620 60 -360 Weight 69.9 kg 69 kg Intake: Intake, IV Titration 60 Amount Sodium Chloride 0.9% 1, 60 000 ml @ 20 mls/hr IV . Q24H [facility] Rx#:[id number] Oral 620 240 Output: Urine 600 Other: Voiding Method Toilet Toilet Toilet # Voids 3 - Labs CBC & Chem 7: 03/24/19 05:01 03/24/19 05:01 Labs: Microbiology - Last 24 Hours (Table) 03/22/19 13:13 Blood Culture - Preliminary Blood No Growth after 72 hours
--- NOTE | 2019-03-25 22:36 | P.DS ---
Providers Date of admission: 03/22/19 15:01 Attending physician: Dwight Kaplan MD Consults: 03/22/19 15:01 Consult Physician Routine Consulting Provider: Bakari Haines Consult Reason/Comments: Syncope Do you want consulting provider notified?: Yes Primary care physician: Leonela Petty Hospital Course: Diagnoses: exertional dyspnea with lightheadedness and dizziness could be related to his cardiomyopathy, resolved now. Sister status is negative for reversible ischemia non-ischemic Cardiomyopathy acute kidney injury, resolved and back to normal. elevated D-Dimer, s/p V/Q scan: low probability for PE Hypertension Hyperlipidemia Nicotine dependence COPD, not in acute exacerbation Elevated d-dimer Elevated lactic acid Borderline blood pressure, stable and inverted T waves Hospital course: This is a pleasant 68 years old male with past medical history of hypertension and hyperlipidemia, every day smoker, COPD, cardiomyopathy. he follows up with Dr. Au and he supposed to have a stress test this coming Sunday in 3 days.he has history of non-ischemic cardiomayopathy , as per pt years ago he had unremarkable cardiac cath , recently on regular f/u with his echo was showing wall hypokinesia which made worried and refered him to stress test which he supposed to get it in 3 days. however today while he was moving the snow plower he had to stop 3-4 times for dyspnea which is unusual for him , thereafter as his friend was helping him with moving the snow plower she felt lightheadedness ,and dizziness that he had to sit down but he did not pass out completely and he did not hit his head or any part of his body,after some rest he got nauseated with no vomiting , got worried and urged him to come to ED. he denies chest pain or abd pain or change in urine or bowel habits, no fever . Patient underwent dubetamin stress test : global hypokinesia, with ejection fraction of 40-45%, wiht no new wall motion abnormality to suggest ischemia [employer] Supervisor also recommended a tilt test which came back negative Patient is back to baseline, with no symptoms. Is mobile with no difficulty. Cardiology team cleared the patient for discharge, and to continue with home medication with no change Problems and management plan were discussed with the patient and he verbalized understanding and acceptance Patient was found stable and can be discharged home however he needs follow-up as an outpatient. Patient was instructed to follow up with PCP Dr. Mccoy within one week and patient agrees. Patient also was instructed to follow up with his home health billing specialist Dr. Au in one week too, pt agrees with appointment Gen: patient is a AAOx3, no distress CVS: S1-S2, RRR, no murmur Lungs: B/L CTA, no wheezing Abdomen: soft, no distention, no tenderness, positive bowel sounds Extremity: no leg edema or induration Time spent more than 35 minutes Patient Condition at Discharge: Stable Plan - Discharge Summary New Discharge Prescriptions: New Acetaminophen Tab [Tylenol] 650 mg PO Q6HR PRN tab PRN Reason: Mild Pain Or Fever > 100.5 Continue Atorvastatin [Lipitor] 40 mg PO HS Enalapril Maleate [Vasotec] 10 mg PO DAILY Carvedilol [Coreg] 6.25 mg PO BID Aspirin EC [Ecotrin Low Dose] 81 mg PO DAILY Discontinued Meloxicam [Mobic] 15 mg PO DAILY Discharge Medication List Aspirin EC [Ecotrin Low Dose] 81 mg PO DAILY 03/22/19 [History] Atorvastatin [Lipitor] 40 mg PO HS 03/22/19 [History] Carvedilol [Coreg] 6.25 mg PO BID 03/22/19 [History] Enalapril Maleate [Vasotec] 10 mg PO DAILY 03/22/19 [History] Acetaminophen Tab [Tylenol] 650 mg PO Q6HR PRN tab 03/24/19 [Rx] Follow up Appointment(s)/Referral(s): Boyd Koch MD [STAFF PHYSICIAN] - 04/02/19 1:30 pm (Office cancelled stress test next .) Malinda Gipson MD [Primary Care Provider] - 1-2 days (Office closed - please call to make an appointment) Patient Instructions/Handouts: Heart Healthy Diet (DC), Syncope (DC) Activity/Diet/Wound Care/Special Instructions: Cardiac diet Activities Limited till you see your doctor Discharge Disposition: HOME SELF-CARE
== END 2019-03-25 17:23 | disposition home or self-care (01) | DRG 315 ==
LOC: EC 12:45 → 3SCARD 15:01
PROVIDERS: ADMIT Internal Medicine; ATTEND Internal Medicine
DX: I42.8 Other cardiomyopathies (principal); E87.2 Acidosis; N17.9 Acute kidney failure, unspecified; I10 Essential (primary) hypertension; E87.5 Hyperkalemia; F17.210 Nicotine dependence, cigarettes, uncomplicated; J44.9 Chronic obstructive pulmonary disease, unspecified; D72.829 Elevated white blood cell count, unspecified; R79.1 Abnormal coagulation profile; E78.5 Hyperlipidemia, unspecified; Z79.1 Long term (current) use of non-steroidal anti-inflammatories (NSAID); Z79.82 Long term (current) use of aspirin; Z79.899 Other long term (current) drug therapy; Z80.0 Family history of malignant neoplasm of digestive organs; Z80.1 Family history of malignant neoplasm of trachea, bronchus and lung; Z80.7 Family history of other malignant neoplasms of lymphoid, hematopoietic and related tissues
CPT/HCPCS: 36415; 71046; 78582; 80048; 80053; 81003; 83605; 83735; 84484; 85025; 85379; 85610; 85730; 87040; 93005; 93306; 93351; 93660; 93970; 94760; 96360; 99285

== ENCOUNTER → 2019-11-11 | Outpatient (CLI) | payer MEDICARE, OTHER ==
[2019-11-11 16:28] LABS: African American GFR (CKD) 72.1 (60.0-200.0); Anion Gap 4.2 mmol/L (4.00-12.00); BUN/Creat Ratio 13.33 Ratio (12.00-20.00); Calcium 9.2 mg/dL (8.7-10.3); Carbon Dioxide 27.8 mmol/L (21.6-31.8); Chol/HDL Ratio 2.65; LDL Cholesterol,Calculated 71.8 mg/dL (0.0-131.0); Non-African American GFR(CKD) 62.2 (60.0-200.0); Potassium 4.9 mmol/L (3.5-5.5); VLDL Calculation 14.2 mg/dL (5.00-40.00)
== END | disposition home or self-care (01) ==
LOC: LABWHC1 09:04
PROVIDERS: ATTEND Physician Assistant
DX: I10 Essential (primary) hypertension (principal); E78.5 Hyperlipidemia, unspecified
CPT/HCPCS: 36415; 80048; 80061

== ENCOUNTER → 2022-01-10 | Outpatient (CLI) | payer MEDICARE, OTHER ==
--- NOTE | 2022-01-10 08:03 | CT ---
EXAMINATION TYPE: CT brain wo con CT DLP: 1267.30 mGycm, Automated exposure control for dose reduction was used. DATE OF EXAM: 01/10/2022 7:47 AM COMPARISON: None. CLINICAL INDICATION:Male, 71 years old with history of R41.3 ATHSCL HEART DISEASE OF [place] CORONARY CASSIUS, Memory loss TECHNIQUE: Brain: Axial CT images of the brain were obtained with coronal and sagittal reformats created and rev iewed. Contrast used: None. Oral contrast used: None. FINDINGS: Brain: Extra-axial spaces: No abnormal extra-axial fluid collections. Ventricular system: Within normal limits Cerebral parenchyma: Cerebral atrophy. No acute intraparenchymal hemorrhage or mass effect. The cortes -white junction is well differentiated. Scattered hypoattenuating areas are seen within the white mat ter. Cerebellum: Unremarkable. Mass effect: No evidence of midline shift. Intracranial vasculature: Atherosclerotic calcifications of the intracranial vessels. Soft tissues: Normal. Calvarium/osseous structures: No depressed skull fracture. Paranasal sinuses and mastoid air cells: Mild scattered paranasal sinus disease. Visualized orbits: Orbital contents are intact. IMPRESSION: 1. No acute intracranial process. 2. Nonspecific white matter changes, likely secondary to chronic small vessel ischemic disease.
== END | disposition home or self-care (01) ==
LOC: RADCTMAIN 07:07
PROVIDERS: ATTEND Internal Medicine
DX: R41.3 Other amnesia (principal)
CPT/HCPCS: 70450

== ENCOUNTER → 2022-01-16 | Outpatient (CLI) | payer MEDICARE, OTHER ==
--- NOTE | 2022-01-17 10:15 | CTL ---
EXAMINATION TYPE: CT Low Dose Lung DATE OF EXAM ORDERED: 01/16/2022 HISTORY: 71-year-old male Z87.891, nicotine dependence, 35 pack-year history, current smoker. Lung ca ncer screening CT DLP: 88.[address] CTDI: 2.2 mGy Automated exposure control for dose reduction was used. SCREENING VISIT: Baseline exam COMPARISON: Chest radiograph 08/23/2021 and 11/14/2019 TECHNIQUE: Low dose computed tomography scan was performed through the chest with coronal and sagitta l reconstructions. CT DIAGNOSTIC QUALITY: Satisfactory FINDINGS: Heart normal size with trace anterior basilar pericardial fluid. Scattered LAD and RCA coronary calci fications are present. Ectatic aortic root at 3.8 cm. There may be very direct takeoff of the left vertebral artery directly from the aortic arch. Prominent but not enlarged 1.2 cm left axillary lymph node. Otherwise, no thoracic lymphadenopathy by CT size criteria. Trace bilateral gynecomastia. Borderline enlarged caliber to the main right and left pulmonary arteries measuring up to 2.6 cm may reflect underlying pulmonary hypertension. [id number] centrilobular emphysema. Mild diffuse bronchial wall thickening. Strandy atelectasis or scarring in the mid and lower lungs. 8 mm pulmonary nodule right mid lung along the fissure, axial image 201. 7 mm regular pulmonary nodule left mid lung along the major fissure, axial image 193, likely intrafis sural lymph node. No consolidation or pleural effusion. There may be underlying small hiatal hernia. Bones: Compression deformity of the T11 vertebral body is visible on the 11/14/2019 exam in retrospect . There is mild retropulsion into the ventral spinal canal at this level. Mild anterior wedging of T1 0 is chronic as well. Superior endplate Schmorl's node of T9 has a chronic appearance. Moderate degen erative disc disease thoracic spine. Anterior endplate spondylosis lower thoracic spine. Osteopenia. IMPRESSION: 1. LungRADS Category 4A (suspicious, 5-15% chance of malignancy). A midlung nodule on either side juliane suring up to 8 mm. These may represent intrafissural lymph nodes but given size, three-month follow-u p low-dose CT chest is recommended. 2. COPD with mild to moderate emphysema and possible pulmonary artery hypertension. Recommend smoking cessation. 3. CAD with LAD and RCA coronary artery calcifications. CT LUNG RAD AND CT CHEST RECOMMENDATION: Lung-Rad 4A Suspicious: Follow-up 3 month LDCT or PET/CT may be used when there is a > 8 mm solid component. S Modifier (other clinically significant findings): None
== END | disposition home or self-care (01) ==
LOC: RADCTMAIN 14:28
PROVIDERS: ATTEND Internal Medicine
DX: Z12.2 Encounter for screening for malignant neoplasm of respiratory organs (principal); I25.10 Atherosclerotic heart disease of native coronary artery without angina pectoris; Z87.891 Personal history of nicotine dependence; J43.9 Emphysema, unspecified
CPT/HCPCS: 71271

== ENCOUNTER → 2022-06-19 | Outpatient (CLI) | payer MEDICARE, OTHER ==
[2022-06-19 15:34] LABS: African American GFR (CKD) >90 (>60 ml/min/1.73 sqM); Blood Urea Nitrogen 19 mg/dL (9-20); Non-African American GFR(CKD) 80 (>60 ml/min/1.73 sqM)
--- NOTE | 2022-06-19 16:33 | CT ---
EXAMINATION TYPE: CT chest w con CT DLP: no DLP. Scanner Error mGycm, Automated exposure control for dose reduction was used. DATE OF EXAM: 06/19/2022 4:19 PM COMPARISON: CT low-dose lung cancer screening 01/16/2022 CLINICAL INDICATION:Male, 71 years old with history of R91.1; PHH, lung nodule TECHNIQUE: Multiple axial images were obtained through the chest following the administration of 100 cc of Isovue 300. FINDINGS: LUNGS/ PLEURA: Mild centrilobular emphysematous changes. Mild diffuse bronchial wall thickening. Sta ble 6 mm nodule along the left major fissure (series 4, image 43). This is favored to represent intra fissural lymph node. Stable left lower lobe 5 mm pulmonary nodule (series 4, image 48). Previously se en 8 mm nodular density along the right major fissure is not definitively visualized on today's exam. AIRWAY: Patent and unremarkable.. HEART: Size within normal limits. No pericardial effusion. MEDIASTINUM: No evidence of adenopathy. VASCULATURE: Ectatic aortic root redemonstrated measuring up to 3.9 cm. No thoracic aortic aneurysm. Four-vessel aortic arch. MUSCULOSKELETAL: No acute osseous abnormalities. Stable anterior wedge compression deformity of the T 11 vertebral body there is similar retropulsion of 4 mm. Stable chronic anterior wedging of the T10 v ertebral body as well as superior endplate Schmorl's node of the T9 vertebral body. Moderate degenera tive disc disease throughout the thoracic spine. Anterior endplate spondylosis of the lower thoracic spine. Osteopenia. SOFT TISSUES/LYMPH NODES: Trace bilateral gynecomastia. LOWER NECK: No significant findings. UPPER ABDOMEN: Tiny hiatal hernia. IMPRESSION: 1. No acute thoracic process. 2. Stable left lower lobe 5 mm pulmonary nodule with 6 mm nodule in the left major fissure favored to represent an intrafissural lymph node. Previously seen 8 mm right midlung nodule is not well visuali zed and self-examination. No new or enlarging pulmonary nodules. 3. Mild COPD changes. 4. Stable ectasia of the aortic root measuring up to 3.9 cm. 5. Stable anterior wedge compression deformity of the T10 and T11 vertebral bodies.
== END | disposition home or self-care (01) ==
LOC: RADCTMAIN 14:40
PROVIDERS: ATTEND Internal Medicine
DX: J44.9 Chronic obstructive pulmonary disease, unspecified (principal); R91.1 Solitary pulmonary nodule; I77.810 Thoracic aortic ectasia
CPT/HCPCS: 82565; 84520; 71260; 36415; Q9967

== ENCOUNTER 2023-01-08 06:18 | Day surgery (SDC) | payer MEDICARE, OTHER ==
[2023-01-08] MEDS ORDERED: SODIUM CHLORIDE 0.9% 500 ML 500 ML IV ONE (06:39)
[2023-01-08 07:02] VITALS: TEMP 97.6
[2023-01-08] MEDS ORDERED: fentaNYL (PF) 50 MCG/ML 2 ML AMP ONE (07:17)
[2023-01-08] MEDS: BENZOCAINE SPRAY 1 CAN TOPICAL ONE ×2 (07:46→07:52)
[2023-01-08 07:49] VITALS: RESP 15
[2023-01-08] MEDS ORDERED: MIDAZOLAM 2 MG/2 ML VIAL IVP ONE ×2 (07:57→07:59)
[2023-01-08] MEDS ORDERED: fentaNYL (PF) 50 MCG/1 ML VIAL IVP ONE (07:57)
[2023-01-08 09:46] VITALS: BP 118/66; PULSE 58
--- NOTE | 2023-01-08 14:59 | P.TEE ---
Date of Procedure: 01/08/23 Description of Procedure(s): Procedure performed: 1. Transesophageal Echocardiogram with color flow doppler, pulsed wave doppler and continuous wave doppler 2. Moderate conscious sedation. Sedation time 18 mins. Indications: Mitral regurgitation and aortic regurgitation Consent: I have discussed the risks, benefits and alternative therapies for the above-mentioned procedure. The patient has indicated understanding and acceptance of the risks of the procedure. Signed consent was obtained and was placed in the paper chart. Procedural Steps: Timeout was performed in usual fashion. Patient's heart rate, blood pressure, oxygen saturation and ECG were monitored. Benzocaine was sprayed liberally in the back of the throat. Bite block was placed between the jaw. 2 mg of Versed and [50] mcg of Fentanyl were administered intravenously. After achieving appropriate moderate conscious sedation, SHARONDA probe was advanced without difficulty and without any immediate complications to the esophagus. SHARONDA study was performed with color flow doppler, pulsed wave doppler and continuous wave doppler. Agitated saline bubbles were injected to assess for any intra- atrial shunt. The probe was then removed. Patient tolerated the procedure well. Patient was transferred to the post procedure area in stable and satisfactory condition. Throughout the procedure patient's heart rate, blood pressure, oxygen saturation and ECG were monitored. Total sedation time 18 mins. Complications: none FINDINGS Left Atrium: Normal Left atrial size. No evidence of mass or thrombus seen. Normal systolic and diastolic forward flow and pulmonary vein. Left Atrial Appendage: No evidence of thrombus or mass seen in TYRON Inter atrial septum: Intact inter-atrial septum with no evidence of atrial septal defect or patent foramen ovale on color Doppler. Left Ventricle: Normal global LV size and systolic function Right Atrium: Normal overall RV size Right Ventricle: Normal global RV size and systolic function Aortic Valve: Structurally normal Trileaflet, no significant calcification. No significant stenosis by color Doppler. Moderate central regurgitation due to trace right coronary cusp prolapse. Mitral Valve: Struturally normal. No significant stenosis. Mild to moderate mitral regurgitation likely secondary due to tethering of chordae arising from posteromedial papillary muscle affecting the medial portion of anterior and po sterior leaflet. Pulmonic Valve: Not well visualized. No significant regurgitation. Tricuspid Valve: Structurally normal. Mild regurgitation. Ascending aorta, Aortic root and Aortic arch: Aortic root measures at 36 mm, ascending aorta measured at 33 mm. Mild intimal thickening. Descending aorta: Mild intimal thickening. CONCLUSION: Moderate central aortic regurgitation with normal size aortic root [id number] secondary mitral regurgitation Mild tricuspid regurgitation No evidence of PFO by color Doppler Normal global LV size and systolic function Normal size left atrium
== END 2023-01-08 09:33 | disposition home or self-care (01) ==
LOC: CATHCVL 06:18
PROVIDERS: ATTEND Student in an Organized Health Care Education/Training Program
DX: I08.3 Combined rheumatic disorders of mitral, aortic and tricuspid valves (principal); I25.10 Atherosclerotic heart disease of native coronary artery without angina pectoris; E78.5 Hyperlipidemia, unspecified; I42.0 Dilated cardiomyopathy; J44.9 Chronic obstructive pulmonary disease, unspecified; F17.210 Nicotine dependence, cigarettes, uncomplicated; Z79.82 Long term (current) use of aspirin; Z79.899 Other long term (current) drug therapy
CPT/HCPCS: 93312; 93320; 93325; 99152; J2250; J3010

== ENCOUNTER → 2023-03-26 | Outpatient (CLI) | payer MEDICARE, OTHER ==
[2023-03-26 13:36] LABS: African American GFR (CKD) >90 (>60 ml/min/1.73 sqM); Blood Urea Nitrogen 19 mg/dL (9-20); Non-African American GFR(CKD) 79 (>60 ml/min/1.73 sqM)
--- NOTE | 2023-03-26 15:37 | CT ---
EXAMINATION TYPE: CT chest w con DATE OF EXAM: 03/26/2023 COMPARISON: 06/19/2022 HISTORY: Abnormal findings of lung field CT DLP: 374 mGycm, Automated exposure control for dose reduction was used. CONTRAST: Performed injected with 100 ml mL of Isovue 300. TECHNIQUE: Axial images were obtained at 5 mm thick sections. Reconstructed images are reviewed on [employer] computer in the coronal plane. FINDINGS: Portion of the thyroid visualized is normal. Infiltrate is at the posterior right lung base. Correlate for atelectasis or pneumonia. Underlying ma ss is not excluded. Follow-up is recommended. There is a small nodule in the posterior lateral right lung base measuring 0.6 cm. Series 3 image 51. There is a small density within the lateral left lung base measuring 0.5 cm. Series 3 image 45. No enlarged mediastinal or hilar adenopathy is evident. The ascending aorta diameter at the level o f the main pulmonary artery is 3.4 cm. The main pulmonary artery diameter at the bifurcation is 2.[address] sections are obtained through the upper abdomen. There are some scattered cysts within the bilateral kidneys. IMPRESSION: 1. A few small nodules discussed above. Small infiltrates in the posterior right lung base. Follow-up exam in 6 months is recommended.
== END | disposition home or self-care (01) ==
LOC: RADCTMAIN 13:02
PROVIDERS: ATTEND Internal Medicine
DX: R91.8 Other nonspecific abnormal finding of lung field (principal)
CPT/HCPCS: 82565; 84520; 71260; 36415; Q9967

== ENCOUNTER → 2023-10-26 | Outpatient (CLI) | payer MEDICARE, OTHER ==
--- NOTE | 2023-11-13 12:48 | CT ---
Patient: Claude Alba Ordering Physician: Unknown, Unknown ID: [id number] Phone, Pager: Phone: N/A Pager: N/A : [phone] Age/Gender: 73Y, N/A Primary Location: N/A Procedure: CT Chest w Contra st Study Date: 10/26/2023 1:21:00 PM EXAMINATION TYPE: CT chest w con DATE OF EXAM: 10/26/2023 COMPARISON: No comparison available on downtime PACS. HISTORY: Lung nodule CT DLP: 270.4 mGycm, Automated exposure control for dose reduction was used. CONTRAST: Performed injected with 100 mL of Isovue 300. TECHNIQUE: Axial images were obtained at 5 mm thick sections. Reconstructed images are reviewed on [employer] computer in the coronal plane. FINDINGS: Portion of the thyroid visualized is normal. There is a nonspecific area of increased density within the posterior right lung base measuring 1.1 x 1.9 cm. Series 4 image 51. Consider PET/CT if additional evaluation would be of benefit. No enlarged mediastinal or hilar adenopathy is evident. The ascending aorta diameter at the level o f the main pulmonary artery is 3.5 cm. The main pulmonary artery diameter at the bifurcation is 2.[address] sections are obtained through the upper abdomen. Abdomen is essentially unremarkable. IMPRESSION: 1. 1.1 x 1.9 cm density posterior right lower lung field. Consider follow-up with PET/CT.
== END | disposition home or self-care (01) ==
LOC: RADCTMAIN 11:35
PROVIDERS: ATTEND Internal Medicine
DX: J98.4 Other disorders of lung (principal); R91.1 Solitary pulmonary nodule
CPT/HCPCS: 71260; Q9967

== ENCOUNTER → 2023-11-08 | Outpatient (CLI) | payer MEDICARE, OTHER ==
--- NOTE | 2023-11-11 02:07 | PE ---
EXAMINATION TYPE: PET CT fusion skull to thigh DATE OF EXAM: 11/08/2023 CLINICAL INDICATION:Male, 73 years old with history of R91.8 Nodule; TECHNIQUE: Following the intravenous administration of 8.45 mCi of F-18 FDG, whole body images are performed from the skull base to the midthigh. Images are reviewed on the computer in the coronal, a xial, and sagittal planes. Reconstructed rotating images are created on independent workstation and reviewed on the computer. A non-contrast CT is performed in conjunction with the PET scan. Glucose level 94 mg/dL CT DLP: 238.86 mGycm, Automated exposure control for dose reduction was used. COMPARISON: CT chest 03/24/2023, 06/19/2022, 01/16/2022, PET/CT None, MRI: None FINDINGS: Mediastinal SUV mean is 2.45. Hepatic parenchyma SUV mean is 2.74. SKULL BASE AND NECK: No suspicious radiotracer activity. CHEST, MEDIASTINUM, AND HILAR REGION: Slightly increased dependent medial bilateral lower lobe consolidative opacities from prior CT. The r ight consolidative opacity demonstrates a maximum SUV of 5.16. The left sided opacity demonstrates a maximum SUV of 3.29. Stable left lower lobe 6 mm pulmonary nodule (series 3, image 122). Stable 5.5 mm pulmonary nodule in the left major fissure (series 3, image 113). 7 mm nodule along the right minor fissure (series 3, i mage 108). Fissural nodules may represent intrafissural lymph nodes. None of these nodules demonstrat e radiotracer uptake. Nonenlarged bilateral infrahilar FDG radiotracer uptake with greatest on the right measuring 3.68. Gr eatest maximum SUV on the left measures 4.26. ABDOMEN AND PELVIS: Increased focal radiotracer uptake within the subcutaneous tissues of the gluteal cleft with a maximum SUV of 5.32. No visualized organized fluid collection. MUSCULOSKELETAL STRUCTURES: No suspicious radiotracer activity. OTHER CT: Moderate coronary artery calcifications, most prominent along the LAD. Small hiatal hernia. Mild metastatic calcification of the aorta and its branches. Prostatomegaly measuring 5.3 cm in jonas sverse dimension. Mild centrilobular emphysematous changes. IMPRESSION: 1. Slightly increased bilateral lower lobe dependent consolidated opacities with mild FDG radiotrace r uptake above background. Finding suggests an infectious/inflammatory etiology. Malignancy thought t o be less likely. Follow-up CT chest in 6 months is recommended. 2. Nonenlarged bilateral infrarenal hilar lymph nodes with mild radiotracer uptake just above backgr ound. Favored to be reactive from #1. 3. Few pulmonary nodules without radiotracer uptake however these nodules are below the sensitivity of PET/CT based on size. Attention on follow-up CT. 4. Focal mild increased radiotracer uptake in the gluteal cleft. Probable infectious/inflammatory et iology. No organized fluid collection identified.
== END | disposition home or self-care (01) ==
LOC: RADPETMAIN 12:51
PROVIDERS: ATTEND Internal Medicine
DX: R91.8 Other nonspecific abnormal finding of lung field (principal)
CPT/HCPCS: 78815

== ENCOUNTER → 2024-05-22 | Outpatient (CLI) | payer MEDICARE, OTHER ==
[2024-05-22 10:51] LABS: African American GFR (CKD) 71 (>60 ml/min/1.73 sqM); Blood Urea Nitrogen 22 mg/dL (9-20); Non-African American GFR(CKD) 61 (>60 ml/min/1.73 sqM)
--- NOTE | 2024-05-22 11:41 | CT ---
EXAMINATION TYPE: CT chest w con DATE OF EXAM: 05/22/2024 COMPARISON: 11/08/2023 CLINICAL INDICATION: Male, 73 years old with history of R91.8 OTHER NONSPECIFIC ABNORMAL FINDING OF L GROVER F; PHH, F/U LUNG NODULES. TECHNIQUE: CT scan of the chest is performed with IV Contrast, patient injected with 100ml mL of Isovue 300. [place] P Images are created on CT scanner and reviewed. 3D reconstructed images are created on an [employer] workstation and reviewed. CT DLP: 244.[address] CTDI: mGy Automated exposure control for dose reduction was used. FINDINGS: LUNGS: The lungs are grossly clear, there is no concerning parenchymal mass or nodule identified. R eticulonodular densities at the lung bases may reflect chronic inflammatory process. No evidence for consolidation. There is no pleural effusion or pneumothorax seen. The tracheobronchial tree is paten t. MEDIASTINUM: There are no greater than 1 cm hilar or mediastinal lymph nodes. No pericardial effusi on is seen. OTHER: No additional significant abnormality is seen. IMPRESSION: The lungs are grossly clear, there is no concerning parenchymal mass or nodule identifie d. Reticulonodular densities at the lung bases may reflect chronic inflammatory process. No evidenc e for consolidation. Follow-up recommendations for incidental pulmonary nodules are per [employer] or [employer]. [facility], , 05/22/2024 11:39 AM
== END | disposition home or self-care (01) ==
LOC: RADCTMAIN 10:04
PROVIDERS: ATTEND Internal Medicine
DX: J98.4 Other disorders of lung (principal); R91.8 Other nonspecific abnormal finding of lung field
CPT/HCPCS: 82565; 84520; 71260; 36415; Q9967